=== PATIENT | male | born 1935 | race Caucasian/White ===

== ENCOUNTER → 2016-12-15 | Outpatient (CLI) | payer OTHER ==
[~2016-12-15] MED LIST: FERR324T15 PO; PRLSR20 PO
[2016-12-15 12:15] LABS: BASO % 0.7 %; BASO ABS # 0.04 K/uL (0-0.2); COMPLETE YES; EOS % 5.3 %; HEMATOCRIT 42.4 % (42-52); LYMPH % 30.2 %; LYMPH ABS # 1.83 K/uL (1.2-3.4); MEAN CELL VOLUME 87.8 fL (80-100); MEAN CORPUSCULAR HEMOGLOBIN 28.4 pg (25-34); MEAN CORPUSCULAR HGB CONC 32.3 g/dl (32-36); MONO % 7.1 %; NEUT % 56.7 %; PLATELET COUNT 196 K/uL (130-400); RED BLOOD COUNT 4.83 M/uL (4.7-6.1); WHITE BLOOD COUNT 6.05 K/uL (4.8-10.8)
== END | disposition home or self-care (01) ==
LOC: C.LAB1850 11:21
PROVIDERS: ATTEND Internal Medicine Cardiovascular Disease
DX: D62 Acute posthemorrhagic anemia (principal)

== ENCOUNTER → 2017-05-09 | Outpatient (CLI) | payer OTHER ==
[2017-05-09 12:39] LABS: BASO ABS # 0.06 K/uL (0-0.2); COMPLETE YES; EOS % 4.3 %; HEMATOCRIT 40.7 % (42-52); IG% 0.2 %; LYMPH % 30.9 %; LYMPH ABS # 1.78 K/uL (1.2-3.4); MEAN CELL VOLUME 87.9 fL (80-100); MEAN CORPUSCULAR HEMOGLOBIN 29.2 pg (25-34); MEAN CORPUSCULAR HGB CONC 33.2 g/dl (32-36); MEAN PLATELET VOLUME 9.9 fL (7.4-10.4); MONO % 7.1 %; NEUT % 56.5 %; PLATELET COUNT 219 K/uL (130-400); RED BLOOD COUNT 4.63 M/uL (4.7-6.1); WHITE BLOOD COUNT 5.76 K/uL (4.8-10.8)
[2017-05-09 13:11] LABS: ALT/SGPT 18 U/L (12-78); AST/SGOT 15 U/L (15-37); BLOOD UREA NITROGEN 23 mg/dl (7-18); BUN/CREATININE RATIO 18.9 (10-20); CALCIUM 9.3 mg/dl (8.5-10.1); CARBON DIOXIDE 26 mmol/L (21-32); CHLORIDE 107 mmol/L (98-107); GLUCOSE 94 mg/dl (70-99); POTASSIUM 4.1 mmol/L (3.5-5.1); SODIUM 140 mmol/L (136-145)
[2017-05-09 13:15] LABS: ALB/GLOB RATIO 0.9 (0.9-2); ALKALINE PHOSPHATASE 146 U/L (45-117); CHOLESTEROL 153 mg/dl (0-200); HDL CHOLESTEROL 51 mg/dl; LDL CHOLESTEROL CALCULATED 81 mg/dl; TRIGLYCERIDES 104 mg/dl (0-150); VERY LOW DENSITY LIPOPROT CALC 21 mg/dl
== END | disposition home or self-care (01) ==
LOC: C.LAB1850 10:55
PROVIDERS: ATTEND Internal Medicine Cardiovascular Disease
DX: I10 Essential (primary) hypertension (principal); E78.5 Hyperlipidemia, unspecified; Z87.19 Personal history of other diseases of the digestive system

== ENCOUNTER → 2017-10-29 | Outpatient (CLI) | payer OTHER ==
[2017-10-29 13:04] LABS: BASO % 0.5 %; BASO ABS # 0.03 K/uL (0-0.2); EOS % 2.8 %; EOS ABS # 0.18 K/uL (0-0.5); HEMATOCRIT 35.5 % (42-52); HEMOGLOBIN 11.1 g/dL (14.0-18.0); IG# 0.02 K/uL (0.00-0.02); LYMPH % 22.9 %; LYMPH ABS # 1.48 K/uL (1.2-3.4); MEAN CELL VOLUME 88.5 fL (80-100); MEAN CORPUSCULAR HEMOGLOBIN 27.7 pg (25-34); MEAN CORPUSCULAR HGB CONC 31.3 g/dl (32-36); MEAN PLATELET VOLUME 9.4 fL (7.4-10.4); MONO % 9.1 %; MONO ABS # 0.59 K/uL (0.11-0.59); NEUT % 64.4 %; NEUT ABS # 4.16 K/uL (1.4-6.5); PLATELET COUNT 322 K/uL (130-400); RED CELL DISTRIBUTION WIDTH CV 13.9 % (11.5-14.5); RED CELL DISTRIBUTION WIDTH SD 45.6 fL (36.4-46.3); WHITE BLOOD COUNT 6.46 K/uL (4.8-10.8)
[2017-10-29 14:52] LABS: ALBUMIN 2.9 gm/dl (3.4-5.0); ALT/SGPT 21 U/L (12-78); BLOOD UREA NITROGEN 24 mg/dl (7-18); CALCIUM 9.3 mg/dl (8.5-10.1); CARBON DIOXIDE 30 mmol/L (21-32); GLUCOSE 114 mg/dl (70-99); POTASSIUM 4.6 mmol/L (3.5-5.1); SODIUM 138 mmol/L (136-145)
[2017-10-29 15:09] LABS: ALKALINE PHOSPHATASE 300 U/L (45-117); AST/SGOT 52 U/L (15-37); TOTAL PROTEIN 7.8 gm/dl (6.4-8.2)
== END | disposition home or self-care (01) ==
LOC: C.LAB1850 11:33
PROVIDERS: ATTEND Internal Medicine Cardiovascular Disease
DX: N28.9 Disorder of kidney and ureter, unspecified (principal); R94.5 Abnormal results of liver function studies; R33.8 Other retention of urine; N13.30 Unspecified hydronephrosis

== ENCOUNTER → 2017-11-02 | Outpatient (CLI) | payer OTHER | END | disposition home or self-care (01) | LOC: C.PATHSPEC 14:51 | PROVIDERS: ATTEND Urology | DX: R97.20 Elevated prostate specific antigen [PSA] (principal); C61 Malignant neoplasm of prostate ==

== ENCOUNTER → 2017-11-14 | Outpatient (CLI) | payer OTHER ==
[~2017-11-14] MED LIST changes: +ASPI81TA28 PO; +BICA50TA2 PO; +CEFD300C2 PO; +HYDR25TA4 PO; +LISI10TA PO; +METO25TA3 PO
--- NOTE | 2017-11-14 10:22 | DIAGNOSTIC IMAGING REPORT ---
ABD/PELVIS NO IV OR ORAL CONT CLINICAL HISTORY: 82 years-old Male presenting with N19 Renal failure. TECHNIQUE: Multidetector CT of the abdomen and pelvis was performed without the use of intravenous contrast. IV contrast: None. A dose lowering technique was used consistent with the principles of ALARA (as low as reasonably achievable). COMPARISON: None. CT DOSE (mGy.cm): The estimated cumulative dose is 413.66 mGy.cm. FINDINGS: Kiss Mixer topogram: Unremarkable. Lung bases: Minimal basilar opacities, likely atelectasis. Ectasia of the ascending aorta, which measures 4.2 cm in diameter. Coronary artery calcification. Normal heart size. No pericardial or pleural effusion. Liver: Normal morphology. No liver lesion. Patent hepatic vasculature. Biliary: No intrahepatic or extrahepatic biliary ductal dilatation. Gallbladder contains gallstones. Pancreas: Normal noncontrast appearance. Spleen: Normal noncontrast appearance. Adrenal glands: Normal noncontrast appearance. Kidneys and ureters: Multiple hypodensities in both kidneys, the largest on the left measuring nearly 8 cm, indeterminate but likely simple cysts. Nonobstructing punctate calculus at the upper pole the right kidney. The left kidney also demonstrates moderate pelvocaliectasis with left hydroureter. The left ureter is dilated to the level of the iliac bifurcation, where it is poorly visualized. The distal left ureter is nondilated. Right renal collecting system is nondilated. The right ureter is also nondilated. Bladder: Circumferential bladder wall thickening allowing for decompression with a Hand catheter. Pelvic organs: Prostate enlargement likely secondary to benign prostatic hyperplasia. Bowel: Moderate stool burden throughout normal caliber colon feces noted in the distal small bowel likely indicating delayed transit. No bowel obstruction. Moderate to large hiatal hernia. Anterior displacement of the duodenum secondary to extensive retroperitoneal lymphadenopathy. Peritoneal cavity: No free fluid or intraperitoneal gas. Small amount of retroperitoneal fluid in the anterior para renal spaces extending into the extraperitoneal pelvis and presacral space. Lymph nodes: Pathologically enlarged lymph nodes in the abdomen and pelvis involving the celiac axis region, perez hepatis, portacaval, aortocaval, periaortic, bilateral common, internal, and external iliac, and bilateral inguinal regions. Vasculature: Atherosclerosis of the normal caliber abdominal aorta. Abdominal wall: Mild body wall edema. Small umbilical hernia noted. Musculoskeletal: Degenerative changes of the spine. Extensive sclerosis in the pelvis. This is not demonstrate cortical thickening or coarsened trabeculation. Abnormal sclerosis also noted at multiple vertebral body levels. IMPRESSION: 1. Extensive abdominopelvic lymphadenopathy extending into the bilateral inguinal regions. Inguinal lymphadenopathy would best served for percutaneous biopsy under ultrasound. This is primarily concerning for lymphoproliferative disease/lymphoma or prostate carcinoma. 2. Multifocal osseous sclerosis involving the pelvis and vertebral bodies highly concerning for osseous metastatic disease. 3. Left hydroureteronephrosis with suspected obstruction at the level of the left iliac bifurcation. There is no calculus in this region and evaluation for mass is limited in the absence of intravenous contrast. As this traverses a region of significant lymphadenopathy, this may be the cause of the obstruction due to external mass effect. 4. Prostatomegaly with chronic bladder obstruction. 5. Moderate stool burden suggest constipation. 6. Mild ectasia of the ascending aorta, which measures 4.2 cm in diameter. The report will be called/faxed according to standard departmental protocol. Electronically signed by: David Justin M.D. 11/14/2017 10:21 AM Dictated Date/Time: 11/14/2017 10:11 AM
--- NOTE | 2017-11-14 14:23 | DIAGNOSTIC IMAGING REPORT ---
BONE SCAN WHOLE BODY CLINICAL HISTORY: N19 Renal [id number] abnormal CT scan with multiple sclerotic skeletal lesions COMPARISON STUDY: CT scan dated 11/14/2017 FINDINGS: The patient was injected with 26.6 mCi of technetium 99m MDP. Three-hour delayed images were acquired. There are multiple foci of abnormal increased skeletal uptake. These include the intertrochanteric portions of both femurs, each symphysis pubis, the left ischio and inferior iliac bone, the sternum, the right seventh rib, multiple vertebra, as well as the skull base. Incidental note is made of an indwelling Hand catheter. IMPRESSION: Multiple foci of abnormal skeletal uptake viewed as highly suspicious for widespread skeletal metastasis Electronically signed by: Esau Murray M.D. 11/14/2017 2:21 PM Dictated Date/Time: 11/14/2017 2:18 PM
== END | disposition home or self-care (01) ==
LOC: C.CTS 09:45
PROVIDERS: ATTEND Urology
DX: N19 Unspecified kidney failure (principal); R59.1 Generalized enlarged lymph nodes; N13.30 Unspecified hydronephrosis; N40.0 Benign prostatic hyperplasia without lower urinary tract symptoms

== ENCOUNTER → 2017-11-19 | Outpatient (CLI) | payer OTHER ==
[~2017-11-19] MED LIST changes: -ASPI81TA28 PO; -BICA50TA2 PO; -CEFD300C2 PO; -HYDR25TA4 PO; -LISI10TA PO; -METO25TA3 PO
[2017-11-19 15:04] LABS: ALBUMIN 3.1 gm/dl (3.4-5.0); ALT/SGPT 24 U/L (12-78); AST/SGOT 17 U/L (15-37); BLOOD UREA NITROGEN 20 mg/dl (7-18); CALCIUM 9.2 mg/dl (8.5-10.1); CARBON DIOXIDE 27 mmol/L (21-32); CREATININE 1.61 mg/dl (0.60-1.40); GLUCOSE 101 mg/dl (70-99); POTASSIUM 4.2 mmol/L (3.5-5.1); SODIUM 137 mmol/L (136-145)
[2017-11-19 15:08] LABS: ALKALINE PHOSPHATASE 402 U/L (45-117); TOTAL PROTEIN 7.8 gm/dl (6.4-8.2)
== END | disposition home or self-care (01) ==
LOC: C.LAB1850 11:53
PROVIDERS: ATTEND Urology
DX: N28.9 Disorder of kidney and ureter, unspecified (principal)

== ENCOUNTER 2017-11-30 20:44 | Emergency (ER) | payer OTHER ==
[~2017-11-30] VITALS: Ht 170.2 cm; Wt 67.8 kg
[2017-11-30 20:54] VITALS: Ht 170.2 cm; Wt 67.8 kg
[2017-11-30] MEDS ORDERED: SODIUM CHLORIDE 0.9% 1000ML 1,000 ML IV STA (22:29)
[2017-11-30] MEDS ORDERED: ACETAMINOPHEN 500 MG TAB PO STA (22:29)
--- NOTE | 2017-11-30 22:38 | EMERGENCY ROOM VISIT NOTE ---
History Report prepared by Yaa: Cecilia Brown Under the Supervision of: Dr. Chris Arroyo M.D. First contact with patient: 22:26 Chief Complaint: REFERRED BY DOCTOR Stated Complaint: URINARY INFECTION History of Present Illness The patient is a 82 year old male who presents to the Emergency Room with complaints of a worsening urinary infection and was referred to the ED by Dr. Blount. He reports Dr. Blount referred him to the ED to ensure he did not have an infection as the patient had a fever of 100.4. The patient reports he has had chills, cloudy urine, and discomfort beginning at 1400 today. He notes he uses a catheter 4 times a day because his bladder is blocked. He denies having a cough. He reports he is currently being treated for prostate cancer. The patient states he does not want to stay here overnight for testing as he has a CAT scan scheduled for December 25, 2017. He states that he was supposed to come her to get oral antibiotics and then to go home. Source of History: patient Onset: 1400 today Position: other (global) Quality: other ("discomfort") Timing: worsening Associated Symptoms: + fevers (100.4), + chills, + urinary symptoms (cloudy urine), No cough Review of Systems See HPI for pertinent positives and negatives. A total of ten systems were reviewed and were otherwise negative. Past Medical & Surgical Medical Problems: (1) Dyspnea on exertion (2) Symptomatic anemia Family History Patient reports no known family medical history. Social History Smoking Status: Never Smoker Alcohol Use: none Drug Use: none Marital Status: Housing Status: lives with family Occupation Status: retired Current/Historical Medications Scheduled Bicalutamide (Casodex), 50 MG PO TID Cefdinir (Omnicef), 300 MG PO Q12H Hydrochlorothiazide (Hctz), 12.5 MG PO DAILY Lisinopril (Prinivil), 10 MG PO DAILY Metoprolol Succ (Toprol Xl) (Toprol-Xl), 25 MG PO DAILY Allergies Coded Allergies: Atropine (Verified Allergy, Unknown, UNKNOWN, 11/30/17) Levofloxacin (Verified Allergy, Unknown, filled up with fluid, 11/30/17) Physical Exam Vital Signs Date Time Temp Pulse Resp B/P (MAP) Pulse Ox O2 Delivery O2 Flow Rate FiO2 12/01/17 01:45 37.0 73 22 103/59 95 12/01/17 01:01 12/01/17 00:30 86 19 93 Room Air 12/01/17 00:05 37.4 91 21 106/61 94 Room Air 11/30/17 23:23 96 19 115/67 95 Room Air 11/30/17 23:06 100 11/30/17 20:54 38.0 96 18 138/78 96 Room Air Physical Exam GENERAL: Awake, alert, fatigued-appearing, in no distress HENT: Normocephalic, atraumatic. Dry mucus membranes. EYES: Normal conjunctiva. Sclera non-icteric. NECK: Supple. No nuchal rigidity. FROM. No JVD. RESPIRATORY: Clear to auscultation. CARDIAC: Regular rate, normal rhythm. Extremities warm and well perfused. Pulses equal. ABDOMEN: Soft, non-distended. No tenderness to palpation. No rebound or guarding. No masses. RECTAL: Deferred. MUSCULOSKELETAL: Chest examination reveals no tenderness. The back is symmetrical on inspection without obvious abnormality. There is no CVA tenderness to palpation. No joint edema. LOWER EXTREMITIES: Calves are equal size bilaterally and non-tender. No edema. No discoloration. NEURO: Normal sensorium. No sensory or motor deficits noted. SKIN: No rash or jaundice noted. Medical Decision & Procedures Laboratory Results 11/30/17 22:55 Red Blood Count 4.19, Mean Corpuscular Volume 87.1, Mean Corpuscular Hemoglobin 28.9, Mean Corpuscular Hemoglobin Concent 33.2, Mean Platelet Volume 9.6, Neutrophils (%) (Auto) 80.9, Lymphocytes (%) (Auto) 8.8, Monocytes (%) (Auto) 9.8, Eosinophils (%) (Auto) 0.1, Basophils (%) (Auto) 0.2, Neutrophils # (Auto) 8.74, Lymphocytes # (Auto) 0.95, Monocytes # (Auto) 1.06, Eosinophils # (Auto) 0.01, Basophils # (Auto) 0.02 11/30/17 22:55 Test 11/30/17 22:55 11/30/17 23:15 White Blood Count 10.80 K/uL (4.8-10.8) Red Blood Count 4.19 M/uL (4.7-6.1) Hemoglobin 12.1 g/dL (14.0-18.0) Hematocrit 36.5 % (42-52) Mean Corpuscular Volume 87.1 fL (80-100) Mean Corpuscular Hemoglobin 28.9 pg (25-34) Mean Corpuscular Hemoglobin Concent 33.2 g/dl (32-36) Platelet Count 201 K/uL (130-400) Mean Platelet Volume 9.6 fL (7.4-10.4) Neutrophils (%) (Auto) 80.9 % Lymphocytes (%) (Auto) 8.8 % Monocytes (%) (Auto) 9.8 % Eosinophils (%) (Auto) 0.1 % Basophils (%) (Auto) 0.2 % Neutrophils # (Auto) 8.74 K/uL (1.4-6.5) Lymphocytes # (Auto) 0.95 K/uL (1.2-3.4) Monocytes # (Auto) 1.06 K/uL (0.11-0.59) Eosinophils # (Auto) 0.01 K/uL (0-0.5) Basophils # (Auto) 0.02 K/uL (0-0.2) RDW Standard Deviation 49.8 fL (36.4-46.3) RDW Coefficient of Variation 15.5 % (11.5-14.5) Immature Granulocyte % (Auto) 0.2 % Immature Granulocyte # (Auto) 0.02 K/uL (0.00-0.02) Anion Gap 7.0 mmol/L (3-11) Est Creatinine Clear Calc Drug Dose 31.3 ml/min Estimated GFR () 42.0 Estimated GFR (Non- 36.2 BUN/Creatinine Ratio 17.3 (10-20) Lactic Acid Level 1.0 mmol/L (0.4-2.0) Calcium Level 9.4 mg/dl (8.5-10.1) Total Bilirubin 1.6 mg/dl (0.2-1) Direct Bilirubin 0.2 mg/dl (0-0.2) Aspartate Amino Transf (AST/SGOT) 12 U/L (15-37) Alanine Aminotransferase (ALT/SGPT) 16 U/L (12-78) Alkaline Phosphatase 425 U/L (45-117) Total Protein 8.1 gm/dl (6.4-8.2) Albumin 3.5 gm/dl (3.4-5.0) Lipase 315 U/L (73-393) Urine Color DK YELLOW Urine Appearance TURBID (CLEAR) Urine pH 5.5 (4.5-7.5) Urine Specific [place] 1.021 (1.000-1.030) Urine Protein 3+ (NEG) Urine Glucose (UA) NEG (NEG) Urine Ketones NEG (NEG) Urine Occult Blood 3+ (NEG) Urine Nitrite POS (NEG) Urine Bilirubin NEG (NEG) Urine Urobilinogen NEG (NEG) Urine Leukocyte Esterase LARGE (NEG) Urine WBC (Auto) >30 /hpf (0-5) Urine RBC (Auto) 10-30 /hpf (0-4) Urine Hyaline Casts (Auto) 1-5 /lpf (0-5) Urine Epithelial Cells (Auto) 0-5 /lpf (0-5) Urine Bacteria (Auto) 2+ (NEG) Urine Pathogenic Casts /lpf (0) Urine Yeast (Auto) BUD W/ HYPHAE (NONE PRSENT) Laboratory results reviewed by me Medications Administered Medications (Trade) Dose Ordered Sig/Jenny Route Start Time Stop Time Status Last Admin Dose Admin Sodium Chloride 1,000 ml @ 125 mls/hr Q8H STAT IV 11/30/17 22:29 12/01/17 02:53 DC 12/01/17 00:09 125 MLS/HR Acetaminophen (Tylenol Tab) 1,000 mg NOW STAT PO 11/30/17 22:29 11/30/17 22:39 DC 12/01/17 00:06 1,000 MG Ceftriaxone Sodium (Rocephin Inj) 1 gm NOW STAT IV 12/01/17 00:28 12/01/17 00:32 DC 12/01/17 00:38 1 GM Cefdinir (Omnicef Cap) 300 mg ONE STAT PO 12/01/17 01:04 12/01/17 01:06 DC 12/01/17 01:11 600 MG ED Course 2228: The patient was evaluated in room B8. A complete history and physical exam was performed. Medical Decision I reviewed the patient's past medical history, medications, and the nursing notes as described above. Differential diagnosis: Etiologies such as UTI, metabolic, electrolyte abnormalities, cardiac sources, intracerebral event, toxicologic, neurologic, as well as others were entertained. The patient is an 82-year-old gentleman with a past medical history of prostate cancer under treatment and known left ureteral obstruction hydronephrosis who presents to the emergency department with chills and concern for a UTI per hpi. Of note, On arrival the patient reports that he is here to "get oral antibiotics and then to go home" and is adamant that he will not be admitted. On arrival the patient is fatigued appearing but no acute distress febrile to 38.0, HR 90s, with vital signs otherwise stable. Patient appears clinically dry. Abdomen is nontender nondistended. WBC and lactate within normal limits. UA grossly positive for infection. CT scan demonstrates known ureteral obstruction with stable hydronephrosis however with comment of increased perinephric stranding that could be related to the patient's obstruction versus infection. While the patient did have a fever, his WBC and lactate were within normal limits and patient is without CVA tenderness. Thus, clinically, the patient's symptoms do not appear to be consistent with pyelonephritis. However given the patient's ureteral obstruction findings are concerning. I discussed these findings with the patient and recommended that he be admitted for IV antibiotics and possible surgical procedure should his condition become worse. However, he reiterated and was adamant that he would not be admitted under any circumstances. Patient reports he cannot tolerate fluoroquinolones. Thus we agreed that we would give him an IV dose of ceftriaxone here and discharge with oral antibiotics. HR improved to 80s and fever resolved after APAP adn IVF. I emphasized the importance of follow-up on Sunday with his urologist and primary care doctor. He was given strict return instructions. I explained to the patient the risks of leaving against medical advice for which he expressed understanding and confirmed that he would return if he became worse. Patient was d/c AMA per [facility]. Medication Reconcilliation Current Medication List: was personally reviewed by me Blood Pressure Screening Patient's blood pressure: Normal blood pressure Blood pressure disposition: Did not require urgent referral Impression Primary Impression: Urinary tract infection Additional Impression: Hydronephrosis of left kidney Scribe Attestation The scribe's documentation has been prepared under my direction and personally reviewed by me in its entirety. I confirm that the note above accurately reflects all work, treatment, procedures, and medical decision making performed by me. Departure Information Dispostion Against Medical Advice Prescriptions Cefdinir (OMNICEF) 300 Mg Cap 300 MG PO Q12H for 14 Days, #28 CAP Prov: Chris Arroyo M.D. 12/01/17 Referrals Deng Menezes M.D. (PCP) Roberto Lunsford MD, Urology Patient Instructions ED [place] Form- 1, ED UTI Cystitis Male, ED UTI Pyelonephritis Male, [facility] Additional Instructions Please follow up with your primary care physician and your urologist in the next 1-3 days for re-evaluation. You were found to have a urinary tract infection which may also involve your kidney. We recommended you stay for admission but your preferred to go home and follow up. You should make sure to return to the emergency department immediately for any continued/worsening symptoms. If worse you may require a surgical intervention. Please note, by leaving AGAINST MEDICAL ADVICE you risk a worse condition, disability, and . However, we're open 24 hours a day and 7 days a week if you were to change your mind or have any worsening symptoms and should not hesitate to return. Acetaminophen for pain and fevers as needed. Cefdinir as directed. Drink plenty of fluids to ensure hydration. Return to the emergency department for worsening symptoms as described in the accompanying instructions. Problem Qualifiers
[2017-11-30] MEDS ORDERED: HYDR25TA4 PO (22:41)
[2017-11-30] MEDS ORDERED: BICA50TA2 PO (22:41)
[2017-11-30] MEDS ORDERED: METO25TA3 PO (22:41)
[2017-11-30] MEDS ORDERED: LISI10TA PO (22:41)
[2017-11-30] MEDS ORDERED: ASPI81TA28 PO (22:41)
--- NOTE | 2017-11-30 22:51 | DIAGNOSTIC IMAGING REPORT ---
CHEST ONE VIEW PORTABLE CLINICAL HISTORY: fever dyspnea COMPARISON STUDY: None FINDINGS: Fixed hiatal hernia. Lungs are considered clear. Diaphragms are smooth. IMPRESSION: Fixed hiatal hernia. Lungs are clear. The above report was generated using voice recognition software. It may contain grammatical, syntax or spelling errors. Electronically signed by: Alton Underwood M.D. 11/30/2017 10:49 PM Dictated Date/Time: 11/30/2017 10:49 PM
[2017-11-30 23:14] LABS: BASO % 0.2 %; BASO ABS # 0.02 K/uL (0-0.2); EOS % 0.1 %; EOS ABS # 0.01 K/uL (0-0.5); HEMATOCRIT 36.5 % (42-52); HEMOGLOBIN 12.1 g/dL (14.0-18.0); IG# 0.02 K/uL (0.00-0.02); LYMPH % 8.8 %; LYMPH ABS # 0.95 K/uL (1.2-3.4); MEAN CELL VOLUME 87.1 fL (80-100); MEAN CORPUSCULAR HEMOGLOBIN 28.9 pg (25-34); MEAN CORPUSCULAR HGB CONC 33.2 g/dl (32-36); MEAN PLATELET VOLUME 9.6 fL (7.4-10.4); MONO % 9.8 %; MONO ABS # 1.06 K/uL (0.11-0.59); NEUT % 80.9 %; NEUT ABS # 8.74 K/uL (1.4-6.5); PLATELET COUNT 201 K/uL (130-400); RED CELL DISTRIBUTION WIDTH CV 15.5 % (11.5-14.5); RED CELL DISTRIBUTION WIDTH SD 49.8 fL (36.4-46.3)
[2017-11-30 23:42] LABS: ALBUMIN 3.5 gm/dl (3.4-5.0); CALCIUM 9.4 mg/dl (8.5-10.1); CREATININE 1.73 mg/dl (0.60-1.40); POTASSIUM 4.1 mmol/L (3.5-5.1)
[2017-11-30 23:45] LABS: TOTAL PROTEIN 8.1 gm/dl (6.4-8.2)
--- NOTE | 2017-11-30 23:59 | DIAGNOSTIC IMAGING REPORT ---
CT SCAN OF THE ABDOMEN AND PELVIS WITHOUT IV CONTRAST CLINICAL HISTORY: Lower abdominal pain. History of prostate cancer. COMPARISON STUDY: Abdominal CT dated 11/14/2017. TECHNIQUE: CT scan of the abdomen and pelvis is performed from the lung bases to the proximal femora. Images are reviewed in the axial, sagittal, and coronal planes. IV contrast was not administered for this examination as per the referring clinician. Note that the examination was performed in suboptimal fashion without oral and IV contrast. A dose lowering technique was utilized adhering to the principles of ALARA. CT DOSE: 277.80 mGy.cm FINDINGS: Lung bases: The heart is top normal in size and without pericardial effusion. The coronary arteries are calcified. There is a 4 mm right lower lobe pulmonary nodule seen on image #11. The lung bases are otherwise clear noting bibasilar scarring/atelectasis. Liver: The unenhanced liver is normal in size, contour, and attenuation. There is no intrahepatic biliary ductal dilatation. Gallbladder: There are numerous gallstones. There is no convincing CT evidence of acute cholecystitis. Spleen: Normal in size and attenuation. Pancreas: The unenhanced pancreas is mildly atrophic and grossly unremarkable. Adrenal glands: Unremarkable. Kidneys: The unenhanced kidneys are atrophic. There is moderate left hydroureteronephrosis. The left ureter is dilated to least the level of the pelvic inlet. This is similar to previous. There is associated left-sided perinephric and periureteric stranding as well as trace fluid. There is no right-sided hydronephrosis. A 4 mm nonobstructing calculus is seen in the right upper pole. No left renal calculi are Identified. There are large bilateral renal cysts. The largest is on the left and measures up to 9 cm. Abdominal vasculature: The abdominal aorta is normal in course and caliber noting moderate atherosclerotic calcification. Stomach and bowel: There is a large hiatal hernia, with the majority the stomach located in the thoracic cavity. The duodenum is normal in configuration. No bowel obstruction is seen. There is moderate colonic fecal retention. The appendix is not identified and reported surgically absent. Peritoneum: There is trace fluid in the paracolic gutters. No intraperitoneal free air is seen. There is a small fat-containing umbilical hernia. Lymphadenopathy: There is bulky confluence retroperitoneal and iliac chain lymphadenopathy. The largest retroperitoneal node is in the left periaortic region seen on image #158 and measures 4.4 x 2.9 cm. There is left inguinal adenopathy. The largest note is seen on image #399 and measures 2.1 x 1.6 cm. Pelvic viscera: The prostate gland is enlarged and heterogeneous, measuring 5 cm in transverse diameter. Although decompressed, the bladder wall is thickened and heterogeneous. There is pericystic inflammatory stranding. There are bilateral fat-containing inguinal hernias. The bowel loops contained within the right inguinal hernia. Skeletal structures: The skeletal structures are osteopenic. 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 Lesions are seen in the inferior sternum, throughout the lumbar spine, throughout the sacrum, as well as throughout the bony pelvis and proximal femora. Pathologic fracture is suggested in the sacrum. IMPRESSION: 1. Suboptimal examination without oral and IV contrast. 2. There is moderate left hydroureteronephrosis, similar in appearance to the 11/14/2017 examination. The left ureter is dilated to at least the level of the pelvic inlet. Perinephric stranding and fluid have increased from previous. This may be related to obstruction. Superimposed infection would be impossible to exclude. Correlation with clinical findings and urinalysis will be required. 3. The prostate gland is enlarged and heterogeneous. 4. The bladder wall is thickened and irregular, with pericystic inflammation identified. The appearance suggests cystitis, which could be on an infectious basis or treatment-related if there has been a history of pelvic radiation. Again, correlation with clinical findings and urinalysis will be required. 5. There is bulky retroperitoneal, iliac chain, and left inguinal lymphadenopathy. This has modestly decreased in size from 11/14/2017. 6. 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 Pathologic fracture of the sacrum is suspected. 7. A 4 mm right lower lobe pulmonary nodule is nonspecific. 8. Large hiatal hernia. 9. Cholelithiasis. 10. Moderate constipation. 11. A right inguinal hernia contains a nonobstructed segment of bowel. 12. Nonobstructing right renal calculus. 13. Additional findings as above. Electronically signed by: Bladimir Gamboa M.D. 11/30/2017 11:58 PM Dictated Date/Time: 11/30/2017 11:40 PM
[2017-12-01] MEDS ORDERED: CEFTRIAXONE SOD INJ 1 GM ADDVIAL IV STA (00:28)
[2017-12-01] MEDS ORDERED: CEFDINIR 300 MG CAP PO STA (01:04)
[2017-12-01] MEDS ORDERED: EMPTY 8 DRAM VIAL ONE (01:09)
[2017-12-01] MEDS ORDERED: CEFD300C2 PO (01:15)
[2017-12-01 01:45] VITALS: BP 103/59; PULSE 73; TEMP 37; O2SAT 95
--- NOTE | 2017-12-01 22:01 | EMERGENCY ROOM VISIT NOTE ---
ED Visit Note First contact with patient: 22:26 This note today (12/01/2017) is in reference to the patient's prior visit note from yesterday on 11/30/2017 after he was discharged AMA after being diagnosed with a urine infection in the setting of a known ureteral obstruction in the setting of his active prostate cancer. Patient was administer IV Ceftriaxone yesterday and currently on oral Cefdinir. The patient's blood culture from yesterday grew positive gram-negative bacilli with sensitivities pending. Given that this positive blood culture is within 24 hours there is concern that this is not a contaminate and a true bacteremia. I called the patient to inform him of the results and again encourage him and recommended that he should return to the emergency department for evaluation. In particular, I discussed with him the fact that he has a known ureter obstruction that puts him at risk for severe infection in the setting and it is the opinion of urology that he may need transfer to a tertiary care facility with capabilities for a percutaneous nephrostomy tube if stenting is not possible. The patient reports that he is feeling tired and has been sleeping a lot today but also went shopping with his during the day. He denies any recurrence of his fevers/chills that he had yesterday. The patient is appreciative of our concern but further states that he is unwilling to return to the hospital until he is able to speak with his main providers like Dr. Lunsford, urology or his house superintendent/PCP Dr. Menezes to get their opinion. The patient reports that he did understand the risks and confirmed he would return should he become worse. Case d/w Dr. Blount, urology on-call, who personally called the patient and again explained the concerns/risk regarding his infection and recommendation to be re-evaluated. Patient again expressed understanding of risks and prefers to follow with his providers outpatient given that he is feeling OK and again confirms he will go to the ED immediately should he become worse.
--- NOTE | 2017-12-03 13:28 | Pharmacy Progress Note ---
ED Pharmacist Culture FollowUp Date of Service: Dec 03, 2017. Patient's urine culture growing Serratia marcescens intermediate to tobramycin/ zosyn. Patient was discharged with Cefdinir 300 mg Q12H x 14 days. Patient left AMA and BC are positive 2/2 for maldonado-sensitive serratia. Patient was contacted on 12/01 to come back for evaluation and patient refused- said he would follow up with Dr. Lunsford on 12/03. Discussed case with Dr. Torres. Serratia does have ability for derepressed mutants that can be resistant to 3rd/4th generation cephalosporins resulting in treatment failure, generally cefdinir okay for UTI but if no improvement needs switched- sensitive to bactrim, also given bacteremia may consider change/patient need admission. Dr. Torres discussed with Kassie BRADLEY urology.
== END 2017-12-01 01:45 | disposition left against medical advice (07) ==
LOC: C.EDB 20:45
DX: N39.0 Urinary tract infection, site not specified (principal); N13.1 Hydronephrosis with ureteral stricture, not elsewhere classified; C61 Malignant neoplasm of prostate; Z88.1 Allergy status to other antibiotic agents; Z88.8 Allergy status to other drugs, medicaments and biological substances

== ENCOUNTER 2017-12-03 16:14 | Inpatient (IN) | payer OTHER ==
[~2017-12-03] VITALS: Ht 180.3 cm; Wt 64.9 kg
[~2017-12-03 16:14] MED LIST changes: +BICA50TA2 PO; +CEFD300C2 PO; -FERR324T15 PO; +HYDR25TA4 PO; +LISI10TA PO; +METO25TA3 PO; -PRLSR20 PO
[2017-12-03] MEDS ORDERED: CEFTRIAXONE SOD INJ 1 GM ADDVIAL IV STA (16:38)
[2017-12-03 17:28] LABS: BASO % 0.5 %; BASO ABS # 0.03 K/uL (0-0.2); EOS % 2.3 %; EOS ABS # 0.13 K/uL (0-0.5); IG# 0.01 K/uL (0.00-0.02); LYMPH % 23.8 %; LYMPH ABS # 1.36 K/uL (1.2-3.4); MEAN CELL VOLUME 88.1 fL (80-100); MEAN CORPUSCULAR HEMOGLOBIN 28.5 pg (25-34); MEAN CORPUSCULAR HGB CONC 32.4 g/dl (32-36); MEAN PLATELET VOLUME 9.7 fL (7.4-10.4); MONO % 11.6 %; MONO ABS # 0.66 K/uL (0.11-0.59); NEUT % 61.6 %; NEUT ABS # 3.52 K/uL (1.4-6.5); PLATELET COUNT 175 K/uL (130-400); RED CELL DISTRIBUTION WIDTH CV 15.6 % (11.5-14.5); RED CELL DISTRIBUTION WIDTH SD 50.5 fL (36.4-46.3); WHITE BLOOD COUNT 5.71 K/uL (4.8-10.8)
[2017-12-03 17:48] LABS: ALBUMIN 3.4 gm/dl (3.4-5.0); CALCIUM 9.2 mg/dl (8.5-10.1); CREATININE 1.81 mg/dl (0.60-1.40); POTASSIUM 3.8 mmol/L (3.5-5.1)
[2017-12-03 17:51] LABS: TOTAL PROTEIN 8.3 gm/dl (6.4-8.2)
--- NOTE | 2017-12-03 18:39 | EMERGENCY ROOM VISIT NOTE ---
History Report prepared by Yaa: Jeannette Galeas Under the Supervision of: Dr. Joaquim Bradford M.D. First contact with patient: 16:21 Chief Complaint: INFECTION Stated Complaint: SEPSIS- SENT BY DR GOSS History of Present Illness The patient is a 82 year old male who presents to the Emergency Room with complaints of an infection of his blood and urine beginning last week. The patient states that he was referred to the Emergency Department by his urologist Dr. Goss. The patient states that his family doctor is Dr. Menezes. The patient was seen here on November [address] Arroyo and was given Rocephin and Omnicef by prescription. The patient's cultures came back positive and Dr. Aroryo called him the next day, but the patient did not want to come into the Emergency Department. The patient states that he catheterizes himself and that he does it every six hours. He denies any recent problems with catheterizing himself. The patient states that he takes medication for his heart and prostate cancer. The patient reports that he was having swelling when he was in [place] but that he took Levaquin. The patient reports a history of an appendectomy. Pt denies LOC, headache, fevers, chills, diaphoresis, visual changes, neck pain, chest pain, breathing difficulties, nausea, vomiting, abdominal pain, back pain , melena, hematochezia, urinary symptoms, numbness, weakness, rash, or other complaints. Source of History: patient Onset: last week Position: other (blood and urine ) Quality: other (infection ) Timing: constant Associated Symptoms: No fevers Note: additional symptom: swelling Review of Systems See HPI for pertinent positives and negatives. A total of ten systems were reviewed and were otherwise negative. Past Medical & Surgical Medical Problems: (1) Dyspnea on exertion (2) Prostate cancer (3) Symptomatic anemia Surgical Problems: (1) S/P appendectomy Family History Patient reports no known family medical history. Social History Smoking Status: Never Smoker Alcohol Use: none Drug Use: none Marital Status: Housing Status: lives with family Occupation Status: retired Current/Historical Medications Scheduled Bicalutamide (Casodex), 50 MG PO TID Cefdinir (Omnicef), 300 MG PO Q12H Hydrochlorothiazide (Hctz), 12.5 MG PO DIRECTED Lisinopril (Prinivil), 10 MG PO DAILY Metoprolol Succ (Toprol Xl) (Toprol-Xl), 25 MG PO DAILY Allergies Coded Allergies: Atropine (Verified Allergy, Unknown, UNKNOWN, 11/30/17) Levofloxacin (Verified Allergy, Unknown, filled up with fluid, 11/30/17) Physical Exam Vital Signs Date Time Temp Pulse Resp B/P (MAP) Pulse Ox O2 Delivery O2 Flow Rate FiO2 12/03/17 18:17 60 18 140/79 98 Room Air 12/03/17 17:09 62 12/03/17 16:18 36.8 70 20 146/80 98 Room Air Physical Exam GENERAL: Awake, alert, well-appearing, in no distress HENT: Normocephalic, atraumatic. Oropharynx unremarkable. EYES: Normal conjunctiva. Sclera non-icteric. NECK: Supple. No nuchal rigidity. FROM. No masses. RESPIRATORY: Clear to auscultation. No wheezes. No rales. Normal respiratory effort. CARDIAC: Normal rate. Normal rhythm. No murmurs. No rubs. Extremities warm and well perfused. Pulses equal. No JVD. GI: Soft, non-distended. No tenderness to palpation. No rebound or guarding. No masses. RECTAL: Deferred. MUSCULOSKELETAL: Atraumatic. Chest examination reveals no tenderness. The back is symmetrical on inspection without obvious abnormality. There is no CVA tenderness to palpation. No joint edema. LOWER EXTREMITIES: Calves are equal size bilaterally and non-tender. No edema. No discoloration. NEURO: Normal sensorium. No sensory or motor deficits noted. SKIN: No rash or jaundice noted. Medical Decision & Procedures Laboratory Results 12/03/17 17:00 Red Blood Count 3.86, Mean Corpuscular Volume 88.1, Mean Corpuscular Hemoglobin 28.5, Mean Corpuscular Hemoglobin Concent 32.4, Mean Platelet Volume 9.7, Neutrophils (%) (Auto) 61.6, Lymphocytes (%) (Auto) 23.8, Monocytes (%) (Auto) 11.6, Eosinophils (%) (Auto) 2.3, Basophils (%) (Auto) 0.5, Neutrophils # (Auto ) 3.52, Lymphocytes # (Auto) 1.36, Monocytes # (Auto) 0.66, Eosinophils # (Auto ) 0.13, Basophils # (Auto) 0.03 12/03/17 17:00 Test 12/03/17 17:00 12/03/17 17:20 White Blood Count 5.71 K/uL (4.8-10.8) Red Blood Count 3.86 M/uL (4.7-6.1) Hemoglobin 11.0 g/dL (14.0-18.0) Hematocrit 34.0 % (42-52) Mean Corpuscular Volume 88.1 fL (80-100) Mean Corpuscular Hemoglobin 28.5 pg (25-34) Mean Corpuscular Hemoglobin Concent 32.4 g/dl (32-36) Platelet Count 175 K/uL (130-400) Mean Platelet Volume 9.7 fL (7.4-10.4) Neutrophils (%) (Auto) 61.6 % Lymphocytes (%) (Auto) 23.8 % Monocytes (%) (Auto) 11.6 % Eosinophils (%) (Auto) 2.3 % Basophils (%) (Auto) 0.5 % Neutrophils # (Auto) 3.52 K/uL (1.4-6.5) Lymphocytes # (Auto) 1.36 K/uL (1.2-3.4) Monocytes # (Auto) 0.66 K/uL (0.11-0.59) Eosinophils # (Auto) 0.13 K/uL (0-0.5) Basophils # (Auto) 0.03 K/uL (0-0.2) RDW Standard Deviation 50.5 fL (36.4-46.3) RDW Coefficient of Variation 15.6 % (11.5-14.5) Immature Granulocyte % (Auto) 0.2 % Immature Granulocyte # (Auto) 0.01 K/uL (0.00-0.02) Anion Gap 5.0 mmol/L (3-11) Est Creatinine Clear Calc Drug Dose 29.4 ml/min Estimated GFR () 39.7 Estimated GFR (Non- 34.3 BUN/Creatinine Ratio 15.8 (10-20) Calcium Level 9.2 mg/dl (8.5-10.1) Total Bilirubin 0.8 mg/dl (0.2-1) Direct Bilirubin 0.2 mg/dl (0-0.2) Aspartate Amino Transf (AST/SGOT) 12 U/L (15-37) Alanine Aminotransferase (ALT/SGPT) 16 U/L (12-78) Alkaline Phosphatase 331 U/L (45-117) Total Protein 8.3 gm/dl (6.4-8.2) Albumin 3.4 gm/dl (3.4-5.0) Lipase 460 U/L (73-393) Urine Color YELLOW Urine Appearance CLOUDY (CLEAR) Urine pH 5.5 (4.5-7.5) Urine Specific [place] 1.014 (1.000-1.030) Urine Protein TRACE (NEG) Urine Glucose (UA) NEG (NEG) Urine Ketones NEG (NEG) Urine Occult Blood 2+ (NEG) Urine Nitrite NEG (NEG) Urine Bilirubin NEG (NEG) Urine Urobilinogen NEG (NEG) Urine Leukocyte Esterase LARGE (NEG) Urine WBC (Auto) >30 /hpf (0-5) Urine RBC (Auto) 0-4 /hpf (0-4) Urine Hyaline Casts (Auto) 0 /lpf (0-5) Urine Epithelial Cells (Auto) 0-5 /lpf (0-5) Urine Bacteria (Auto) NEG (NEG) Laboratory results reviewed by me Medications Administered Medications (Trade) Dose Ordered Sig/Jenny Route Start Time Stop Time Status Last Admin Dose Admin Ceftriaxone Sodium (Rocephin Inj) 1 gm NOW STAT IV 12/03/17 16:38 12/03/17 16:39 DC 12/03/17 17:01 1 GM ED Course 1626: The patient was evaluated in room C12B. A complete history and physical exam was performed. 1638: Ordered Rocephin Inj 1 gm IV. 1806: Discussed the patient's case with Dr. Alexandra-Infectious Disease who recommended admission for the patient. The patient will be evaluated for further treatment and disposition. 181: Upon reexamination, the patient was resting. I discussed the test results and treatment plan with him. [facility] The patient will be evaluated for further management. Medical Decision Patient presents to the emergency department because of abnormal labs. The has a Serratia UTI and bacteremia. Prior records were reviewed. The patient has been on Omnicef. He received IV Rocephin. Differential diagnosis includes bacteremia, UTI, sepsis, pyelonephritis, as well as others. Clinically he is doing well. Blood work is obtained. He was given additional dose of IV Rocephin. His CBC and chemistries were unremarkable. Urinalysis is still concerning for infection. I did consult with Dr. Alexandra of infectious disease and he strongly recommended inpatient treatment. I did discuss case with hospitalist service. The patient and his were informed. He agreed to stay in the hospital overnight. Medication Reconcilliation Current Medication List: was personally reviewed by me Blood Pressure Screening Patient's blood pressure: Elevated blood pressure will be monitored by hospitalist Consults Time Called: 1804 Consulting Physician: Dr. Alexandra- Infectious Disease Returned Call: 1805 Discussed the patient's case with Dr. Alexandra-Infectious Disease who recommended admission for the patient. The patient will be evaluated for further treatment and disposition. Additional Consults: Time Called: 1812 Consulted Physician: Dr. Bustamante- [facility] Hospitalist Returned Call: 1812 Additional Comments: Discussed the patient's case. The patient will be evaluated for further treatment and disposition. Impression Primary Impression: Bacterial infection due to Serratia Additional Impressions: UTI (urinary tract infection) Bacteremia Scribe Attestation The scribe's documentation has been prepared under my direction and personally reviewed by me in its entirety. I confirm that the note above accurately reflects all work, treatment, procedures, and medical decision making performed by me. Departure Information Dispostion Being Evaluated By Hospitalist Referrals Deng Menezes M.D. (PCP) Patient Instructions My [facility] Problem Qualifiers
--- NOTE | 2017-12-03 18:49 | History and Physical ---
History & Physical Date & Time of Service: Dec 03, 2017 at 18:39 Chief Complaint: Sepsis- Sent By Dr Lunsford Primary Care Physician: Deng Menezes M.D. 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 Lunsford at the beginning of this month. Patient was recently in the ER 3 days ago and found to have a UTI where blood cultures were drawn. At that point in time he refused to be admitted, and was started on Omnicef and discharged from the ER. Blood cultures have returned positive 2/2 with Serratia marcescens growing, therefore he was called and told to report back to the ER. The patient initially refused, however was seen by his PCP today who encouraged him to come to the ER. Repeat blood cultures and urine cultures have been drawn in the ER. Patient has been started on ceftriaxone IV as sensitivities for initial cultures have returned. We will consult infectious disease, Dr. Alexandra to determine length of antibiotic treatment course. The patient reports feeling well, no fever, chills or sweats. He typically straight caths QID for urinary retention secondary to enlarge prostate. 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 After listening to him and his discuss their previous experiences, he seems much more happy to talk with me at bedside. Of note, he was recently placed on levaquin for a previous UTI and reports his fluid status was severely affected therefore has been on HCTZ 12.5 qam on ODD days. Past Medical/Surgical History Medical Problems: (1) Dyspnea on exertion (2) Hydronephrosis of left kidney (3) Prostate cancer (4) Symptomatic anemia (5) Urinary tract infection HTN Hx of myocardial infarction x 2 Surgical Problems: (1) S/P appendectomy Family History Patient reports no known family medical history. Social History Smoking Status: Former Smoker (quit 30 years ago, smoked pipe occasionally) Alcohol Use: occasionally (1 glass of Radha occasionally) Drug Use: none Marital Status: Housing status: lives with family Occupational Status: retired Allergies Coded Allergies: Atropine (Verified Allergy, Unknown, UNKNOWN, 11/30/17) Levofloxacin (Verified Allergy, Unknown, filled up with fluid, 11/30/17) Home Medications Scheduled Bicalutamide (Casodex), 50 MG PO TID Cefdinir (Omnicef), 300 MG PO Q12H Hydrochlorothiazide (Hctz), 12.5 MG PO DIRECTED Lisinopril (Prinivil), 10 MG PO DAILY Metoprolol Succ (Toprol Xl) (Toprol-Xl), 25 MG PO DAILY Review of Systems Constitutional: No fever, No chills, No sweats, No weight loss, No fatigue Eyes: No redness, No discharge ENT: No sore throat, No trouble swallowing Respiratory: No cough, No shortness of breath, No dyspnea on exertion Cardiovascular: No chest pain, No edema Abdomen: No pain, No nausea, No vomiting, No diarrhea, No constipation Musculoskeletal: No joint pain, No swelling Genitourinary - Male: + problem reported (see HPI) Neurologic: No weakness, No numbness/tingling Psychiatric: No depression symptoms, No anxiety Endocrine: No fatigue Integumentary: No rash, No itch Physical Exam Vital Signs Date Time Temp Pulse Resp B/P (MAP) Pulse Ox O2 Delivery O2 Flow Rate FiO2 12/03/17 18:17 60 18 140/79 98 Room Air 12/03/17 17:09 62 12/03/17 16:18 36.8 70 20 146/80 98 Room Air General Appearance: WD/WN, no apparent distress Head: normocephalic, atraumatic Eyes: PERRL, EOMI ENT: hearing grossly normal, pharynx normal Neck: supple, thyroid normal Respiratory/Chest: lungs clear, normal breath sounds, no respiratory distress, no accessory muscle use Cardiovascular: regular rate, rhythm, no JVD, + systolic murmur Abdomen/GI: normal bowel sounds, non tender, soft, + pertinent finding (+ tympany with percussion) Back: normal inspection Extremities/Musculoskelatal: no calf tenderness, no pedal edema Neurologic/Psych: alert, normal mood/affect, oriented x 3 Skin: normal color, warm/dry Diagnostics Laboratory Results Results Past 24 Hours Test 12/03/17 17:00 12/03/17 17:20 Range/Units White Blood Count 5.71 4.8-10.8 K/uL Red Blood Count 3.86 4.7-6.1 M/uL Hemoglobin 11.0 14.0-18.0 g/dL Hematocrit 34.0 42-52 % Mean Corpuscular Volume 88.1 80-100 fL Mean Corpuscular Hemoglobin 28.5 25-34 pg Mean Corpuscular Hemoglobin Concent 32.4 32-36 g/dl Platelet Count 175 130-400 K/uL Mean Platelet Volume 9.7 7.4-10.4 fL Neutrophils (%) (Auto) 61.6 % Lymphocytes (%) (Auto) 23.8 % Monocytes (%) (Auto) 11.6 % Eosinophils (%) (Auto) 2.3 % Basophils (%) (Auto) 0.5 % Neutrophils # (Auto) 3.52 1.4-6.5 K/uL Lymphocytes # (Auto) 1.36 1.2-3.4 K/uL Monocytes # (Auto) 0.66 0.11-0.59 K/uL Eosinophils # (Auto) 0.13 0-0.5 K/uL Basophils # (Auto) 0.03 0-0.2 K/uL RDW Standard Deviation 50.5 36.4-46.3 fL RDW Coefficient of Variation 15.6 11.5-14.5 % Immature Granulocyte % (Auto) 0.2 % Immature Granulocyte # (Auto) 0.01 0.00-0.02 K/uL Sodium Level 137 136-145 mmol/L Potassium Level 3.8 3.5-5.1 mmol/L Chloride Level 105 98-107 mmol/L Carbon Dioxide Level 27 21-32 mmol/L Anion Gap 5.0 3-11 mmol/L Blood Urea Nitrogen 29 7-18 mg/dl Creatinine 1.81 0.60-1.40 mg/dl Est Creatinine Clear Calc Drug Dose 29.4 ml/min Estimated GFR () 39.7 Estimated GFR (Non- 34.3 BUN/Creatinine Ratio 15.8 10-20 Random Glucose 95 70-99 mg/dl Calcium Level 9.2 8.5-10.1 mg/dl Total Bilirubin 0.8 0.2-1 mg/dl Direct Bilirubin 0.2 0-0.2 mg/dl Aspartate Amino Transf (AST/SGOT) 12 15-37 U/L Alanine Aminotransferase (ALT/SGPT) 16 12-78 U/L Alkaline Phosphatase 331 45-117 U/L Total Protein 8.3 6.4-8.2 gm/dl Albumin 3.4 3.4-5.0 gm/dl Lipase 460 73-393 U/L Urine Color YELLOW Urine Appearance CLOUDY CLEAR Urine pH 5.5 4.5-7.5 Urine Specific [place] 1.014 1.000-1.030 Urine Protein TRACE NEG Urine Glucose (UA) NEG NEG Urine Ketones NEG NEG Urine Occult Blood 2+ NEG Urine Nitrite NEG NEG Urine Bilirubin NEG NEG Urine Urobilinogen NEG NEG Urine Leukocyte Esterase LARGE NEG Urine WBC (Auto) >30 0-5 /hpf Urine RBC (Auto) 0-4 0-4 /hpf Urine Hyaline Casts (Auto) 0 0-5 /lpf Urine Epithelial Cells (Auto) 0-5 0-5 /lpf Urine Bacteria (Auto) NEG NEG Microbiology Results 12/03/17 Blood Culture, Ordered Pending 12/03/17 Blood Culture, Ordered Pending 12/03/17 Urine Culture, Received Pending Impression Assessment and Plan 82 y M with PMHx of HTN, 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 Lunsford at the beginning of this month. Patient was recently in the ER 3 days ago and found to have a UTI where blood cultures were drawn. At that point in time he refused to be admitted, and was started on Omnicef and discharged from the ER. Blood cultures have returned positive 2/2 with Serratia marcescens. Pt admitted and placed on IV ceftriaxone. UTI Positive blood cultures with Serratia marcescens History of prostate cancer on Casodex therapy -Admit to [facility] -Repeat CBC X blood cultures 2 obtained, follow -UA and urine culture obtained, follow -No leukocytosis, afebrile, patient feels -start lactobacillus while on IV abx HTN -Continue home medications -Follows with Dr. Lunsford with urology as an outpatient - Insert lanier cath as pt typically needs straight cath QID as outpatient while here, strict I/Os, void trial prior to dc CKD stage III -Creatinine elevated at 1.8, up from 3 days ago where it was 1.7, Unknown baseline but was at 1.4 last fall -Hold fluids at this time and watch with hx of LE edema. HCTZ dosed as per home regimen on ODD days, last dose taken this morning, continue next dose on 4/25. HTN Hx MD x 2 -Continue home medications of metprolol, lisinopril and HCTZ as above. DVT prophylaxis: Ambulatory CODE STATUS: Full code Disposition: Patient from home, Likely to return within 1-2 days I personally interviewed and examined the patient. I agree with history of present illness and physical exam mentioned above, I also performed my own history taking and examination. Past medical history and review of system has been obtained by myself I reviewed all pertinent labs and studies Reviewed current medications I discussed and formulated of the assessment and plan mentioned above. Please refer to the Summary mentioned below. 82 years old man with history of prostate cancer, currently doing self- catheterization, hypertension, coronary artery disease and chronic kidney disease stage III. Patient presented to the hospital 3 days ago with UTI symptoms, blood and urine cultures came back negative for Serratia. Patient was called to come back to the hospital, initially refused because he is feeling better on oral antibiotics that he was given. But his urologist encouraged him to come to the hospital. New blood cultures were sent, patient was started on ceftriaxone, will increase the dose to [address] Alexandra from infectious disease services will be consulted on the case He was giving lactobacillus to prevent C. difficile Ultrasound renal was ordered to rule out any perirenal abscess or unilateral hydronephrosis, pyelonephritis, 1 blood cultures clear consider PICC line and home antibiotic therapy General Appearance: not in acute distress Eyes: normal Sclerae, extraocular muscle intact ENT: hearing grossly normal Neck: supple Respiratory/Chest: normal air entry bilateral ,no respiratory distress, no accessory muscle use Cardiovascular: regular rate, rhythm, no murmur Abdomen: non tender, soft, no masses Extremities: no edema musculoskeletal: no significant swelling or inflammation in any joint Neurologic/Psychiatric: Awake alert oriented times place and person moves all extremities sensation intact cranial nerves II-12 appear to be intact Skin: normal color, warm/dry, no rash Erickson Amos MD, [facility] hospitalist group Resuscitation Status VTE Prophylaxis Will order VTE Prophylaxis: No Reason for no VTE drug order: Treatment not indicated Reason no Mechanical VTE Order: Treatment not indicated
[2017-12-03 20:50] VITALS: O2SAT 96; Ht 180.3 cm; Wt 64.9 kg
[2017-12-03] MEDS: BICALUTAMIDE 50 MG TAB PO SCH (21:53)
--- NOTE | 2017-12-03 23:10 | DIAGNOSTIC IMAGING REPORT ---
RENAL ULTRASOUND HISTORY: UTI with bacteremia , R/O sole renal abscess or obstruction COMPARISON: Abdomen and pelvis CT 11/30/2017. FINDINGS: Right kidney: 11.4 cm. No hydronephrosis. Multiple cysts the largest in the lower pole measuring 5.3 cm. This demonstrates a few septations. This also demonstrates a few internal echoes. The cortex is slightly echogenic. Left kidney: 12.5 cm. Moderate hydronephrosis, unchanged. Multiple cysts with the largest in the upper pole measuring 8 cm. The cortex is echogenic and demonstrates mild to moderate thinning. The Bladder: Decompressed by Hand catheter and not well visualized. Bladder wall thickening is noted. IMPRESSION: 1. No change in the moderate left hydronephrosis. 2. Bilateral renal cysts. The 5.3 cm lower pole cyst within the right kidney appears to be complex. 3. Bladder wall thickening. This may be due to the decompression by the Hand catheter. 4. Echogenic kidneys suggestive of medical renal disease. Electronically signed by: Abdi De Anda M.D. 12/03/2017 11:09 PM Dictated Date/Time: 12/03/2017 11:06 PM
[2017-12-04] VITALS (8 sets, daily range): BP systolic 112–160; BP diastolic 58–77; PULSE 58–69; TEMP 36.5–37; O2SAT 92–97
[2017-12-04 05:57] LABS: BASO % 0.6 %; BASO ABS # 0.03 K/uL (0-0.2); EOS % 3.3 %; EOS ABS # 0.18 K/uL (0-0.5); HEMATOCRIT 30.5 % (42-52); IG# 0.02 K/uL (0.00-0.02); LYMPH % 23.8 %; LYMPH ABS # 1.28 K/uL (1.2-3.4); MEAN CELL VOLUME 87.6 fL (80-100); MEAN CORPUSCULAR HEMOGLOBIN 28.7 pg (25-34); MEAN CORPUSCULAR HGB CONC 32.8 g/dl (32-36); MEAN PLATELET VOLUME 9.8 fL (7.4-10.4); MONO % 13.4 %; MONO ABS # 0.72 K/uL (0.11-0.59); NEUT % 58.5 %; NEUT ABS # 3.15 K/uL (1.4-6.5); PLATELET COUNT 167 K/uL (130-400); RED CELL DISTRIBUTION WIDTH CV 15.3 % (11.5-14.5); RED CELL DISTRIBUTION WIDTH SD 49.5 fL (36.4-46.3); WHITE BLOOD COUNT 5.38 K/uL (4.8-10.8)
[2017-12-04 06:25] LABS: ALBUMIN 2.6 gm/dl (3.4-5.0); CALCIUM 8.8 mg/dl (8.5-10.1); CREATININE 1.79 mg/dl (0.60-1.40); POTASSIUM 3.9 mmol/L (3.5-5.1)
[2017-12-04 06:28] LABS: TOTAL PROTEIN 6.9 gm/dl (6.4-8.2)
[2017-12-04] MEDS ORDERED: CEFTRIAXONE SOD INJ 500 MG in DEXTROSE 5% 50ML 50 ML IV SCH (08:00)
[2017-12-04] MEDS: METOPROLOL SUCC 25MG EXT REL TAB PO SCH (08:13)
[2017-12-04] MEDS: LISINOPRIL 10 MG TAB PO SCH (08:13)
[2017-12-04] MEDS: LACTOBACILLUS ACIDOPHILUS (FLORANEX) TAB PO SCH ×3 (08:13→17:48)
[2017-12-04] MEDS: BICALUTAMIDE 50 MG TAB PO SCH ×3 (08:15→20:51)
--- NOTE | 2017-12-04 10:35 | Clinical Documentation Query ---
NIRANJAN Martin : CLINICAL DOCUMENTATION QUERY Patient is an 82 year old male admitted for treatment of UTI. H&P notes "he typically straight caths QID for urinary retention secondary to enlarge prostate". 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 Thank you. In your clinical opinion is this patient being managed for: ( x ) UTI due to intermittent self urethral catheterization ( ) Not Agree ( ) Other explanation of clinical findings (Please Explain) ( ) Unable to determine (Please Define) ( ) Need to Discuss The medical record reflects the following clinical findings, treatment, and risk factors. Clinical Indicators: As above Treatment: Cultures, UA, urine culture, IV antibiotics, Hand Risk Factors: Self catheterization QID Please clarify and document your clinical opinion in the progress notes and discharge summary. Terms such as "probable", "suspected", "likely", "questionable", "possible", or "still to be ruled out" are acceptable. IF IN AGREEMENT, YOU MUST DOCUMENT ABOVE DIAGNOSTIC STATEMENT IN DAILY PROGRESS NOTES AND DISCHARGE SUMMARY. This document is not part of the patient's record. Thank You, Albino Olmos, RN [phone]
--- NOTE | 2017-12-04 10:40 | Medical Consult ---
Consultation Date of Consultation: Dec 04, 2017. Attending Physician: Rosalino Mane MD, PhD Reason for Consultation: Bacteremia History of Present Illness 82-year-old male with history of prostate cancer and BPH, was found to have evidence of urinary tract infection earlier this year while residing in [place] , and was told by his urologist there that he had BPH and was given levofloxacin. He developed severe side effects from medication which was discontinued but had improvement in his symptoms. He re-presented to the emergency room November 30 with recurrent urinary symptoms along with chills, was discharged home on Omnicef, but now blood and urine cultures have returned positive for a sensitive Serratia marcescens. Patient was called back in admitted to the hospital and started on ceftriaxone 1 gram daily. He states that he is feeling much better, denies any current significant symptoms. He has had urinary retention on off, and has had Hand catheter and intermittent self catheterization recently. He had CT scan done November 30 which showed evidence of possible pyelonephritis and cystitis. Follow-up blood cultures are pending. Past Medical/Surgical History Medical Problems: (1) Bacteremia Status: Acute (2) Bacterial infection due to Serratia Status: Acute (3) Hydronephrosis of left kidney Status: Acute (4) Urinary tract infection Status: Acute (5) UTI (urinary tract infection) Status: Acute Medical Problems: (1) Dyspnea on exertion (2) Prostate cancer (3) Serratia marcescens infection (4) Symptomatic anemia Surgical Problems: (1) S/P appendectomy Family History Patient reports no known family medical history. Social History Smoking Status: Former Smoker Alcohol Use: occasionally (1 glass of Radha occasionally) Drug Use: none Marital Status: Housing Status: lives with family Occupation Status: retired Allergies Coded Allergies: Atropine (Verified Allergy, Unknown, UNKNOWN, 11/30/17) Levofloxacin (Verified Allergy, Unknown, filled up with fluid, 11/30/17) Current Inpatient Medications Current Inpatient Medications Medications (Trade) Dose Ordered Sig/Jenny Route Start Time Stop Time Status Last Admin Dose Admin Bicalutamide (Casodex Tab) 50 mg TID PO 12/03/17 20:10 01/02/18 20:59 12/04/17 08:15 50 MG Lisinopril (Zestril Tab) 10 mg DAILY PO 12/04/17 08:00 01/03/18 08:59 12/04/17 08:13 10 MG Metoprolol Succinate (Toprol Xl Tab) 25 mg DAILY PO 12/04/17 08:00 01/03/18 08:59 12/04/17 08:13 25 MG Lactobacillus Acidophilus (Floranex Tab) 4 tab TIDM PO 12/04/17 08:00 01/03/18 07:59 12/04/17 08:13 4 TAB Hydrochlorothiazide (Hydrochlorothiazide Tab) 12.5 mg Q2D@0900 PO 12/05/17 08:00 01/04/18 07:59 Sodium Chloride 1,000 ml @ 80 mls/hr [id number] IV 12/04/17 10:20 01/03/18 10:19 UNV Ceftriaxone Sodium 2000 mg/ Dextrose 70 ml @ 100 mls/hr Q24H IV 12/04/17 10:30 12/14/17 10:29 UNV Miscellaneous Information (Nursing Verbal Med Order) 1 ea ONE ONCE N/A 12/04/17 10:45 12/04/17 10:46 UNV Review of Systems All systems were reviewed and are negative except as per HPI Physical Exam Date Time Temp Pulse Resp B/P (MAP) Pulse Ox O2 Delivery O2 Flow Rate FiO2 12/04/17 07:04 37.0 69 20 119/65 (83) 96 Room Air 12/04/17 04:05 37.0 63 18 115/58 (77) 94 Room Air 12/04/17 00:11 37.0 61 18 113/59 (77) 97 Room Air 12/04/17 00:00 96 Room Air 12/03/17 20:50 96 Room Air 12/03/17 19:17 60 17 96 12/03/17 18:17 60 18 140/79 98 Room Air 12/03/17 17:09 62 12/03/17 16:18 36.8 70 20 146/80 98 Room Air General Appearance: WD/WN, no apparent distress Head: normocephalic, atraumatic Eyes: normal inspection, EOMI, sclerae normal ENT: normal ENT inspection, pharynx normal Neck: supple, no adenopathy, thyroid normal, trachea midline Respiratory/Chest: chest non-tender, lungs clear, normal breath sounds, no respiratory distress Cardiovascular: regular rate, rhythm, no gallop, no murmur Abdomen/GI: normal bowel sounds, non tender, soft, no organomegaly Genitourinary - Male: + pertinent finding (Hand catheter draining dark urine) Back: normal inspection, no CVA tenderness Extremities/Musculoskelatal: no calf tenderness, normal capillary refill, non- tender Neurologic/Psych: alert, normal mood/affect, oriented x 3 Skin: normal color, warm/dry, no rash Lymphatic: no adenopathy Laboratory Results Date/Time Source Procedure Growth Status 12/03/17 18:46 Blood Blood Culture Pending Received 12/03/17 18:43 Blood Blood Culture Pending Received 12/03/17 17:20 Urine,Catheterized Urine Culture Pending Received Last 24 Hours Test 12/03/17 17:00 12/03/17 17:20 12/04/17 05:29 White Blood Count 5.71 K/uL 5.38 K/uL Red Blood Count 3.86 M/uL 3.48 M/uL Hemoglobin 11.0 g/dL 10.0 g/dL Hematocrit 34.0 % 30.5 % Mean Corpuscular Volume 88.1 fL 87.6 fL Mean Corpuscular Hemoglobin 28.5 pg 28.7 pg Mean Corpuscular Hemoglobin Concent 32.4 g/dl 32.8 g/dl Platelet Count 175 K/uL 167 K/uL Mean Platelet Volume 9.7 fL 9.8 fL Neutrophils (%) (Auto) 61.6 % 58.5 % Lymphocytes (%) (Auto) 23.8 % 23.8 % Monocytes (%) (Auto) 11.6 % 13.4 % Eosinophils (%) (Auto) 2.3 % 3.3 % Basophils (%) (Auto) 0.5 % 0.6 % Neutrophils # (Auto) 3.52 K/uL 3.15 K/uL Lymphocytes # (Auto) 1.36 K/uL 1.28 K/uL Monocytes # (Auto) 0.66 K/uL 0.72 K/uL Eosinophils # (Auto) 0.13 K/uL 0.18 K/uL Basophils # (Auto) 0.03 K/uL 0.03 K/uL RDW Standard Deviation 50.5 fL 49.5 fL RDW Coefficient of Variation 15.6 % 15.3 % Immature Granulocyte % (Auto) 0.2 % 0.4 % Immature Granulocyte # (Auto) 0.01 K/uL 0.02 K/uL Sodium Level 137 mmol/L 139 mmol/L Potassium Level 3.8 mmol/L 3.9 mmol/L Chloride Level 105 mmol/L 108 mmol/L Carbon Dioxide Level 27 mmol/L 27 mmol/L Anion Gap 5.0 mmol/L 4.0 mmol/L Blood Urea Nitrogen 29 mg/dl 29 mg/dl Creatinine 1.81 mg/dl 1.79 mg/dl Est Creatinine Clear Calc Drug Dose 29.4 ml/min 29.3 ml/min Estimated GFR () 39.7 40.3 Estimated GFR (Non- 34.3 34.8 BUN/Creatinine Ratio 15.8 16.3 Random Glucose 95 mg/dl 103 mg/dl Calcium Level 9.2 mg/dl 8.8 mg/dl Total Bilirubin 0.8 mg/dl 0.7 mg/dl Direct Bilirubin 0.2 mg/dl Aspartate Amino Transf (AST/SGOT) 12 U/L 10 U/L Alanine Aminotransferase (ALT/SGPT) 16 U/L 13 U/L Alkaline Phosphatase 331 U/L 277 U/L Total Protein 8.3 gm/dl 6.9 gm/dl Albumin 3.4 gm/dl 2.6 gm/dl Lipase 460 U/L Urine Color YELLOW Urine Appearance CLOUDY Urine pH 5.5 Urine Specific [place] 1.014 Urine Protein TRACE Urine Glucose (UA) NEG Urine Ketones NEG Urine Occult Blood 2+ Urine Nitrite NEG Urine Bilirubin NEG Urine Urobilinogen NEG Urine Leukocyte Esterase LARGE Urine WBC (Auto) >30 /hpf Urine RBC (Auto) 0-4 /hpf Urine Hyaline Casts (Auto) 0 /lpf Urine Epithelial Cells (Auto) 0-5 /lpf Urine Bacteria (Auto) NEG Magnesium Level 2.1 mg/dl Globulin 4.3 gm/dl Albumin/Globulin Ratio 0.6 Patient Name: PEBBLES Jo Unit Number: [id number] Dictated: 12/03/172305 Transcribed: 12/03/172305 AQUILES Printed Date/Time: [~ rep prt dt]/[~ rep prt tm] [~ rep ct labl] - [~ rep ct ivnm] [facility] [address] [place] [address] Dictated: 12/03/172305 Transcribed: 12/03/172305 PAJ Printed Date/Time: [~ rep prt dt]/[~ rep prt tm] [~ rep ct labl] - [~ rep ct ivnm] RENAL ULTRASOUND HISTORY: UTI with bacteremia , R/O sole renal abscess or obstruction COMPARISON: Abdomen and pelvis CT 11/30/2017. FINDINGS: Right kidney: 11.4 cm. No hydronephrosis. Multiple cysts the largest in the lower pole measuring 5.3 cm. This demonstrates a few septations. This also demonstrates a few internal echoes. The cortex is slightly echogenic. Left kidney: 12.5 cm. Moderate hydronephrosis, unchanged. Multiple cysts with the largest in the upper pole measuring 8 cm. The cortex is echogenic and demonstrates mild to moderate thinning. The Bladder: Decompressed by Hand catheter and not well visualized. Bladder wall thickening is noted. IMPRESSION: 1. No change in the moderate left hydronephrosis. 2. Bilateral renal cysts. The 5.3 cm lower pole cyst within the right kidney appears to be complex. 3. Bladder wall thickening. This may be due to the decompression by the Hand catheter. 4. Echogenic kidneys suggestive of medical renal disease. Electronically signed by: Abdi De Anda M.D. 12/03/2017 11:09 PM Dictated Date/Time: 12/03/2017 11:06 PM The status of this report is Signed. Draft = Not yet reviewed or approved by Radiologist. Signed = Reviewed and approved by Radiologist. <AttendingPhy>Erickson Hinkle MD</AttendingPhy> <FamilyPhy></ FamilyPhy> <PrimaryPhy>Deng Menezes M.D.</PrimaryPhy> <UnitNumber> [id number]</UnitNumber> <VisitNumber>[id number]</VisitNumber> <PatientName> PEBBLES ARBOLEDA</PatientName> <DateOfBirth>1935</DateOfBirth> <Location> C.4E</Location> <ServiceDate>12/03/17</ServiceDate> <MNE>ESINDI</MNE> < OrderingPhy>Erickson Hinkle MD</OrderingPhy> <OrderingPhyMNE>f rep ord dr barr</OrderingPhyMNE> <DictatingPhyMNE>f rep dict dr barr</DictatingPhyMNE > <CCListMNE>f rep ct mne</CCListMNE> <AdmittingPhyMNE>f pt admit dr barr</ AdmittingPhyMNE> <AttendingPhyMNE>f pt attend dr barr</AttendingPhyMNE> <ConsultingPhyMNE>f pt consult dr barr</ConsultingPhyMNE> <FamilyPhyMNE>f pt fam dr barr</FamilyPhyMNE> <OtherPhyMNE>f pt other dr barr</OtherPhyMNE> < PrimaryPhyMNE>f pt prim care dr barr</PrimaryPhyMNE> <ReferringPhyMNE>f pt referring dr barr</ReferringPhyMNE> Assessment & Plan 82-year-old male with prostate cancer and BPH now with Serratia bacteremia 0 with likely pyelonephritis and cystitis, possible prostatitis as well. He is remarkably nontoxic, and think that he could receive another dose of IV ceftriaxone today, would increase dose to 2 grams, then consider further treatment as an outpatient if remains well. Would continue IV antibiotics and still can demonstrate negative follow-up blood cultures. Will then require prolonged course of oral antibiotics. Case discussed with Dr. Mane. Will follow.
[2017-12-04] MEDS ORDERED: NURSING VERBAL MED ORDER ONE (10:45)
--- NOTE | 2017-12-04 11:39 | Urology Consultation ---
History General Date of Service: Dec 04, 2017. Chief Complaint: urosepsis Primary Care Physician: Deng Menezes M.D. Pt seen a urologist before?: Yes (Dr. Lunsford ) If yes, why?: prostate cancer History of Present Illness 82 yo male with a history of prostate cancer (treated with Casodex and Lupron injections) initially presented to [facility] ED as urged by Dr. Blount on 12-01 for fevers and fatigue. Admission recommended at that time, but the pt refused. The pt was then noted to have positive blood and urine cultures growing Serratia Mercens. He was called back by the ED to request he return, but he again refused. My office was then called by Dr. Torres to make us aware of the pt' s current condition and refusal of admission. He was then called back by our HEALTH AND NUTRITION SPECIALIST Christina Cee who was able to successfully urge the pt to return to the ED. Pt now admitted, and ID consulted for abx management. The denies any pain or n/v this morning. White count is normal. He is afebrile. Cr is 1.79. Baseline of 1.2 noted last April 2017. Hand catheter currently in place draining clear, yellow urine. The pt was previously doing CIC QID at home. Imaging Imaging: Ultrasound (renal u/s) Laboratory Last 24 Hours Test 12/03/17 17:00 12/03/17 17:20 12/04/17 05:29 White Blood Count 5.71 K/uL 5.38 K/uL Red Blood Count 3.86 M/uL 3.48 M/uL Hemoglobin 11.0 g/dL 10.0 g/dL Hematocrit 34.0 % 30.5 % Mean Corpuscular Volume 88.1 fL 87.6 fL Mean Corpuscular Hemoglobin 28.5 pg 28.7 pg Mean Corpuscular Hemoglobin Concent 32.4 g/dl 32.8 g/dl Platelet Count 175 K/uL 167 K/uL Mean Platelet Volume 9.7 fL 9.8 fL Neutrophils (%) (Auto) 61.6 % 58.5 % Lymphocytes (%) (Auto) 23.8 % 23.8 % Monocytes (%) (Auto) 11.6 % 13.4 % Eosinophils (%) (Auto) 2.3 % 3.3 % Basophils (%) (Auto) 0.5 % 0.6 % Neutrophils # (Auto) 3.52 K/uL 3.15 K/uL Lymphocytes # (Auto) 1.36 K/uL 1.28 K/uL Monocytes # (Auto) 0.66 K/uL 0.72 K/uL Eosinophils # (Auto) 0.13 K/uL 0.18 K/uL Basophils # (Auto) 0.03 K/uL 0.03 K/uL RDW Standard Deviation 50.5 fL 49.5 fL RDW Coefficient of Variation 15.6 % 15.3 % Immature Granulocyte % (Auto) 0.2 % 0.4 % Immature Granulocyte # (Auto) 0.01 K/uL 0.02 K/uL Sodium Level 137 mmol/L 139 mmol/L Potassium Level 3.8 mmol/L 3.9 mmol/L Chloride Level 105 mmol/L 108 mmol/L Carbon Dioxide Level 27 mmol/L 27 mmol/L Anion Gap 5.0 mmol/L 4.0 mmol/L Blood Urea Nitrogen 29 mg/dl 29 mg/dl Creatinine 1.81 mg/dl 1.79 mg/dl Est Creatinine Clear Calc Drug Dose 29.4 ml/min 29.3 ml/min Estimated GFR () 39.7 40.3 Estimated GFR (Non- 34.3 34.8 BUN/Creatinine Ratio 15.8 16.3 Random Glucose 95 mg/dl 103 mg/dl Calcium Level 9.2 mg/dl 8.8 mg/dl Total Bilirubin 0.8 mg/dl 0.7 mg/dl Direct Bilirubin 0.2 mg/dl Aspartate Amino Transf (AST/SGOT) 12 U/L 10 U/L Alanine Aminotransferase (ALT/SGPT) 16 U/L 13 U/L Alkaline Phosphatase 331 U/L 277 U/L Total Protein 8.3 gm/dl 6.9 gm/dl Albumin 3.4 gm/dl 2.6 gm/dl Lipase 460 U/L Urine Color YELLOW Urine Appearance CLOUDY Urine pH 5.5 Urine Specific [place] 1.014 Urine Protein TRACE Urine Glucose (UA) NEG Urine Ketones NEG Urine Occult Blood 2+ Urine Nitrite NEG Urine Bilirubin NEG Urine Urobilinogen NEG Urine Leukocyte Esterase LARGE Urine WBC (Auto) >30 /hpf Urine RBC (Auto) 0-4 /hpf Urine Hyaline Casts (Auto) 0 /lpf Urine Epithelial Cells (Auto) 0-5 /lpf Urine Bacteria (Auto) NEG Magnesium Level 2.1 mg/dl Globulin 4.3 gm/dl Albumin/Globulin Ratio 0.6 Problem List Medical Problems: (1) Bacteremia Status: Acute (2) Bacterial infection due to Serratia Status: Acute (3) Hydronephrosis of left kidney Status: Acute (4) Urinary tract infection Status: Acute (5) UTI (urinary tract infection) Status: Acute Past History cancer - prostate, hypertension, myocardial infarction, urinary tract infection , other (left hydronephrosis) Past Surgical History: appendectomy Family History Patient reports no known family medical history. Social History Hx Tobacco Use In Past Year?: No Smoking: quit greater than 1 year (quit 30 years ago, smoked pipe occasionally ) Drug use: none Marital status: Housing status: lives with family Occupation status: retired Allergies Coded Allergies: Atropine (Verified Allergy, Unknown, UNKNOWN, 11/30/17) Levofloxacin (Verified Allergy, Unknown, filled up with fluid, 11/30/17) Medications Home Medications: Home Meds and Scripts Medications Dose Route/Sig Max Daily Dose Days Date Category Dose Instructions Omnicef (Cefdinir) 300 Mg Cap 300 Mg PO Q12H 14 12/01/17 Rx Toprol-Xl (Metoprolol Succinate) 25 Mg Tabcr 25 Mg PO DAILY 11/30/17 Reported Prinivil (Lisinopril) 10 Mg Tab 10 Mg PO DAILY 11/30/17 Reported Hctz (Hydrochlorothiazide) 25 Mg Tab 12.5 Mg PO DIRECTED 11/30/17 Reported 1/2 TABLET ON ODD DAYS ONLY Casodex (Bicalutamide) 50 Mg Tab 50 Mg PO TID 11/30/17 Reported Inpatient Medications: Current Inpatient Medications Medications (Trade) Dose Ordered Sig/Jenny Route Start Time Stop Time Status Last Admin Dose Admin Bicalutamide (Casodex Tab) 50 mg TID PO 12/03/17 20:10 01/02/18 20:59 12/04/17 08:15 50 MG Lisinopril (Zestril Tab) 10 mg DAILY PO 12/04/17 08:00 01/03/18 08:59 12/04/17 08:13 10 MG Metoprolol Succinate (Toprol Xl Tab) 25 mg DAILY PO 12/04/17 08:00 01/03/18 08:59 12/04/17 08:13 25 MG Lactobacillus Acidophilus (Floranex Tab) 4 tab TIDM PO 12/04/17 08:00 01/03/18 07:59 12/04/17 08:13 4 TAB Hydrochlorothiazide (Hydrochlorothiazide Tab) 12.5 mg Q2D@0900 PO 12/05/17 08:00 01/04/18 07:59 Sodium Chloride 1,000 ml @ 80 mls/hr [id number] IV 12/04/17 10:20 01/03/18 10:19 Ceftriaxone Sodium 2000 mg/ Dextrose 70 ml @ 100 mls/hr Q24H IV 12/04/17 14:00 12/14/17 13:59 Review of Systems Review of Systems Constitutional: No fever, No chills Eyes: No double vision Neurological: No dizzy Endocrine: No excessive thirst Gastrointestinal: No abdominal pain, No nausea, No vomiting Cardiovascular: No chest pain Respiratory: No shortness of breath Skin: No rash Musculoskeletal: + arthritis Male : No painful urination, No blood in urine Physical Exam Vital Signs: Vital Signs Past 12 Hours Date Time Temp Pulse Resp B/P (MAP) Pulse Ox O2 Delivery O2 Flow Rate FiO2 12/04/17 11:24 36.5 58 20 129/72 (91) 95 12/04/17 07:04 37.0 69 20 119/65 (83) 96 Room Air 12/04/17 04:05 37.0 63 18 115/58 (77) 94 Room Air 12/04/17 00:11 37.0 61 18 113/59 (77) 97 Room Air 12/04/17 00:00 96 Room Air Physical Exam: General Appearance: no apparent distress Eyes: bilateral eyes normal inspection ENT: hearing grossly normal Neck: no JVD Respiratory/Chest: no respiratory distress, no accessory muscle use Cardiovascular: no JVD Extremities: normal inspection Neurologic/Psychiatric: alert, normal mood/affect, oriented x 3 Skin: normal color Assessment & Plan Assessment & Plan A/P: Urosepsis, Urinary retention, prostate cancer 1. Urosepsis Management of IV abx per ID. Appreciate the consult. 2. Urinary retention Resume CIC QID prior to discharge. 3. Prostate Cancer- - ct4 metastatic [place] 5+5 Will check a PSA while inpatient. Consult oncology per Dr. Lunsford. Continue Casodex. Pt requesting new Rx. Will decrease to once daily dosing per Dr. Lunsford and send new Rx. Lupron injections as scheduled per our office. The pt is scheduled to f/u with Dr. Lunsford on 01-01. Will keep as scheduled. Thanks for the consult. No further management at this time. Recall PRN issues.
--- NOTE | 2017-12-04 11:55 | Medical Student: [facility] ---
Consultation Date of Consultation: Dec 04, 2017. Reason for Consultation: Metastatic Prostate CA on Lupron and Casodex therapy, CIC QID at home History of Present Illness Mr. Winter is a 82yM with metastatic prostate CA, acute urinary retention and chronic renal insufficiency. Currently under the care of Dr. Lunsford, receiving medical therapy of Lupron injections and Casadex. Denies any issues or complications with CIC at home for acute urinary retention. Presented to ED with LUTS symptoms, fevers and chills on 11/[address] Blount, diagnosed with UTI. Admission was recommended but patient declined at this time. Omnicef initiated and patient discharged home. Blood cultures grew out Serratia marcescens, patient was contacted immediately and recommended return to ED. Patient again declined ED recommendation, our office was contacted directly by the ED physicians to make aware of situation. Patient was then called by Christina BRADLEY and successfully prompted patient to agree to admission for IV antibiotic therapy. Currently under the care of hospitalist and Dr. Alexandra with infectious disease. Feeling generally well, sitting up in bed with no acute distress. Hand catheter in place, draining clear yellow. White count is normal. He is afebrile. Cr is 1.79. Baseline of 1.2 noted last April 2017. Denies chest pain, shortness of breath. Denies abdominal pain, n/v/d. Denies dysuria or hematuria. Past Medical/Surgical History Medical History: Metastatic prostate CA, Left hydronephrosis, acute urinary retention requiring CIC 4 times a day, Chronic renal insufficiency, CAD, Aortic Regurgitation, HTN, dyslipidemia Surgical History: Appendectomy Family History Ovarian Ca - Sister Social History Smoking Status: Former Smoker History of Alcohol Use: No Drug Use: none Marital Status: Housing Status: lives with family Occupation Status: retired Review of Systems Constitutional: No fever, No chills Respiratory: No cough, No shortness of breath Cardiac: No chest pain Male : + see HPI Endo: No fatigue Skin: No rash Allergies Coded Allergies: Atropine (Verified Allergy, Unknown, UNKNOWN, 11/30/17) Levofloxacin (Verified Allergy, Unknown, filled up with fluid, 11/30/17) Medications Current Inpatient Medications Medications (Trade) Dose Ordered Sig/Jenny Route Start Time Stop Time Status Last Admin Dose Admin Bicalutamide (Casodex Tab) 50 mg TID PO 12/03/17 20:10 01/02/18 20:59 12/04/17 08:15 50 MG Lisinopril (Zestril Tab) 10 mg DAILY PO 12/04/17 08:00 01/03/18 08:59 12/04/17 08:13 10 MG Metoprolol Succinate (Toprol Xl Tab) 25 mg DAILY PO 12/04/17 08:00 01/03/18 08:59 12/04/17 08:13 25 MG Lactobacillus Acidophilus (Floranex Tab) 4 tab TIDM PO 12/04/17 08:00 01/03/18 07:59 12/04/17 08:13 4 TAB Hydrochlorothiazide (Hydrochlorothiazide Tab) 12.5 mg Q2D@0900 PO 12/05/17 08:00 01/04/18 07:59 Sodium Chloride 1,000 ml @ 80 mls/hr [id number] IV 12/04/17 10:20 01/03/18 10:19 Ceftriaxone Sodium 2000 mg/ Dextrose 70 ml @ 100 mls/hr Q24H IV 12/04/17 14:00 12/14/17 13:59 Physical Exam Date Time Temp Pulse Resp B/P (MAP) Pulse Ox O2 Delivery O2 Flow Rate FiO2 12/04/17 11:24 36.5 58 20 129/72 (91) 95 12/04/17 07:04 37.0 69 20 119/65 (83) 96 Room Air 12/04/17 04:05 37.0 63 18 115/58 (77) 94 Room Air 12/04/17 00:11 37.0 61 18 113/59 (77) 97 Room Air 12/04/17 00:00 96 Room Air 12/03/17 20:50 96 Room Air 12/03/17 19:17 60 17 96 12/03/17 18:17 60 18 140/79 98 Room Air 12/03/17 17:09 62 12/03/17 16:18 36.8 70 20 146/80 98 Room Air General Appearance: WD/WN, no apparent distress ENT: hearing grossly normal Neck: no JVD Respiratory: no respiratory distress, no accessory muscle use Abdomen: non tender Neurologic/Psychiatric: alert, normal mood/affect, oriented x 3 Skin: normal color, warm/dry, no rash Lymphatic: no adenopathy Laboratory Results Last 24 Hours Test 12/03/17 17:00 12/03/17 17:20 12/04/17 05:29 White Blood Count 5.71 K/uL 5.38 K/uL Red Blood Count 3.86 M/uL 3.48 M/uL Hemoglobin 11.0 g/dL 10.0 g/dL Hematocrit 34.0 % 30.5 % Mean Corpuscular Volume 88.1 fL 87.6 fL Mean Corpuscular Hemoglobin 28.5 pg 28.7 pg Mean Corpuscular Hemoglobin Concent 32.4 g/dl 32.8 g/dl Platelet Count 175 K/uL 167 K/uL Mean Platelet Volume 9.7 fL 9.8 fL Neutrophils (%) (Auto) 61.6 % 58.5 % Lymphocytes (%) (Auto) 23.8 % 23.8 % Monocytes (%) (Auto) 11.6 % 13.4 % Eosinophils (%) (Auto) 2.3 % 3.3 % Basophils (%) (Auto) 0.5 % 0.6 % Neutrophils # (Auto) 3.52 K/uL 3.15 K/uL Lymphocytes # (Auto) 1.36 K/uL 1.28 K/uL Monocytes # (Auto) 0.66 K/uL 0.72 K/uL Eosinophils # (Auto) 0.13 K/uL 0.18 K/uL Basophils # (Auto) 0.03 K/uL 0.03 K/uL RDW Standard Deviation 50.5 fL 49.5 fL RDW Coefficient of Variation 15.6 % 15.3 % Immature Granulocyte % (Auto) 0.2 % 0.4 % Immature Granulocyte # (Auto) 0.01 K/uL 0.02 K/uL Sodium Level 137 mmol/L 139 mmol/L Potassium Level 3.8 mmol/L 3.9 mmol/L Chloride Level 105 mmol/L 108 mmol/L Carbon Dioxide Level 27 mmol/L 27 mmol/L Anion Gap 5.0 mmol/L 4.0 mmol/L Blood Urea Nitrogen 29 mg/dl 29 mg/dl Creatinine 1.81 mg/dl 1.79 mg/dl Est Creatinine Clear Calc Drug Dose 29.4 ml/min 29.3 ml/min Estimated GFR () 39.7 40.3 Estimated GFR (Non- 34.3 34.8 BUN/Creatinine Ratio 15.8 16.3 Random Glucose 95 mg/dl 103 mg/dl Calcium Level 9.2 mg/dl 8.8 mg/dl Total Bilirubin 0.8 mg/dl 0.7 mg/dl Direct Bilirubin 0.2 mg/dl Aspartate Amino Transf (AST/SGOT) 12 U/L 10 U/L Alanine Aminotransferase (ALT/SGPT) 16 U/L 13 U/L Alkaline Phosphatase 331 U/L 277 U/L Total Protein 8.3 gm/dl 6.9 gm/dl Albumin 3.4 gm/dl 2.6 gm/dl Lipase 460 U/L Urine Color YELLOW Urine Appearance CLOUDY Urine pH 5.5 Urine Specific [place] 1.014 Urine Protein TRACE Urine Glucose (UA) NEG Urine Ketones NEG Urine Occult Blood 2+ Urine Nitrite NEG Urine Bilirubin NEG Urine Urobilinogen NEG Urine Leukocyte Esterase LARGE Urine WBC (Auto) >30 /hpf Urine RBC (Auto) 0-4 /hpf Urine Hyaline Casts (Auto) 0 /lpf Urine Epithelial Cells (Auto) 0-5 /lpf Urine Bacteria (Auto) NEG Magnesium Level 2.1 mg/dl Globulin 4.3 gm/dl Albumin/Globulin Ratio 0.6 Assessment & Plan A/P: Urosepsis, Acute urinary retention, Metastatic prostate cancer Urosepsis: Continue IV antibiotics as recommended by ID. Metastatic Prostate CA - ct4 metastatic [place] 5+5: Discussed with Dr. Lunsford, will repeat PSA and consult heme/oncology while inpatient. Continue Casodex, patient requesting new Rx, will decrease to once daily dosing per Dr. Lunsford (new Rx sent by Kassie BRADLEY) Lupron injections as scheduled by our office outpatient. Acute Urinary Retention: Okay to discontinue Hand catheter prior to discharge and continue CIC 4 times a day. Plan to followup with Dr. Lunsford as outpatient on January 01 as previously scheduled. Please call with any further concerns. Thank you for allowing us to participate in the care of Mr. Winter.
[2017-12-04] MEDS ORDERED: BICA50TA2 PO (12:03)
[2017-12-04] MEDS: SODIUM CHLORIDE 0.9% 1000ML 1,000 ML IV SCH ×2 (12:27→23:33)
--- NOTE | 2017-12-04 12:39 | Hospitalist Progress Note ---
Hospitalist Progress Note Date of Service Dec 04, 2017. Subjective Pt evaluation today including: conversation w/ patient, physical exam, lab review, review of studies, review of inpatient medication list Voiding: lanier catheter in place Patient feeling well. Lanier placed at admission- discussed removing and continue CIC at discharge- patient is happy with this plan. Seen by ID- possible discharge tomorrow. Seen by Urology- requested oncology consultation. Eating and drinking OK. Patient denies any fever, chills, sweats, lightheadedness, dizziness, vision changes, CP, palpitations, edema, SOB, wheezing, cough, abdominal pain, nausea, vomiting, diarrhea, urinary symptoms, melena, numbness/tingling, weakness, muscle/joint pain, anxiety/depression, active bleeding, or new skin discoloration/changes. Medications Current Inpatient Medications Medications (Trade) Dose Ordered Sig/Jenny Route Start Time Stop Time Status Last Admin Dose Admin Bicalutamide (Casodex Tab) 50 mg TID PO 12/03/17 20:10 01/02/18 20:59 12/04/17 08:15 50 MG Lisinopril (Zestril Tab) 10 mg DAILY PO 12/04/17 08:00 01/03/18 08:59 12/04/17 08:13 10 MG Metoprolol Succinate (Toprol Xl Tab) 25 mg DAILY PO 12/04/17 08:00 01/03/18 08:59 12/04/17 08:13 25 MG Lactobacillus Acidophilus (Floranex Tab) 4 tab TIDM PO 12/04/17 08:00 01/03/18 07:59 12/04/17 08:13 4 TAB Hydrochlorothiazide (Hydrochlorothiazide Tab) 12.5 mg Q2D@0900 PO 12/05/17 08:00 01/04/18 07:59 Sodium Chloride 1,000 ml @ 80 mls/hr [id number] IV 12/04/17 10:20 01/03/18 10:19 Ceftriaxone Sodium 2000 mg/ Dextrose 70 ml @ 100 mls/hr Q24H IV 12/04/17 14:00 12/14/17 13:59 Objective Vital Signs Date Time Temp Pulse Resp B/P (MAP) Pulse Ox O2 Delivery O2 Flow Rate FiO2 12/04/17 12:12 Room Air 12/04/17 11:24 36.5 58 20 129/72 (91) 95 12/04/17 07:04 37.0 69 20 119/65 (83) 96 Room Air 12/04/17 04:05 37.0 63 18 115/58 (77) 94 Room Air 12/04/17 00:11 37.0 61 18 113/59 (77) 97 Room Air 12/04/17 00:00 96 Room Air 12/03/17 20:50 96 Room Air 12/03/17 19:17 60 17 96 12/03/17 18:17 60 18 140/79 98 Room Air 12/03/17 17:09 62 12/03/17 16:18 36.8 70 20 146/80 98 Room Air Physical Exam General Appearance: no apparent distress Eyes: normal inspection, PERRL ENT: hearing grossly normal Neck: supple Respiratory/Chest: lungs clear, no respiratory distress, no accessory muscle use Cardiovascular: regular rate, rhythm, + systolic murmur Abdomen: normal bowel sounds, non tender, soft Extremities: no pedal edema, no calf tenderness Neurologic/Psychiatric: alert, normal mood/affect, oriented x 3 Skin: normal color, warm/dry, no rash Laboratory Results Last 24 Hours Test 12/03/17 17:00 12/03/17 17:20 12/04/17 05:29 12/04/17 11:48 White Blood Count 5.71 K/uL 5.38 K/uL Red Blood Count 3.86 M/uL 3.48 M/uL Hemoglobin 11.0 g/dL 10.0 g/dL Hematocrit 34.0 % 30.5 % Mean Corpuscular Volume 88.1 fL 87.6 fL Mean Corpuscular Hemoglobin 28.5 pg 28.7 pg Mean Corpuscular Hemoglobin Concent 32.4 g/dl 32.8 g/dl Platelet Count 175 K/uL 167 K/uL Mean Platelet Volume 9.7 fL 9.8 fL Neutrophils (%) (Auto) 61.6 % 58.5 % Lymphocytes (%) (Auto) 23.8 % 23.8 % Monocytes (%) (Auto) 11.6 % 13.4 % Eosinophils (%) (Auto) 2.3 % 3.3 % Basophils (%) (Auto) 0.5 % 0.6 % Neutrophils # (Auto) 3.52 K/uL 3.15 K/uL Lymphocytes # (Auto) 1.36 K/uL 1.28 K/uL Monocytes # (Auto) 0.66 K/uL 0.72 K/uL Eosinophils # (Auto) 0.13 K/uL 0.18 K/uL Basophils # (Auto) 0.03 K/uL 0.03 K/uL RDW Standard Deviation 50.5 fL 49.5 fL RDW Coefficient of Variation 15.6 % 15.3 % Immature Granulocyte % (Auto) 0.2 % 0.4 % Immature Granulocyte # (Auto) 0.01 K/uL 0.02 K/uL Sodium Level 137 mmol/L 139 mmol/L Potassium Level 3.8 mmol/L 3.9 mmol/L Chloride Level 105 mmol/L 108 mmol/L Carbon Dioxide Level 27 mmol/L 27 mmol/L Anion Gap 5.0 mmol/L 4.0 mmol/L Blood Urea Nitrogen 29 mg/dl 29 mg/dl Creatinine 1.81 mg/dl 1.79 mg/dl Est Creatinine Clear Calc Drug Dose 29.4 ml/min 29.3 ml/min Estimated GFR () 39.7 40.3 Estimated GFR (Non- 34.3 34.8 BUN/Creatinine Ratio 15.8 16.3 Random Glucose 95 mg/dl 103 mg/dl Calcium Level 9.2 mg/dl 8.8 mg/dl Total Bilirubin 0.8 mg/dl 0.7 mg/dl Direct Bilirubin 0.2 mg/dl Aspartate Amino Transf (AST/SGOT) 12 U/L 10 U/L Alanine Aminotransferase (ALT/SGPT) 16 U/L 13 U/L Alkaline Phosphatase 331 U/L 277 U/L Total Protein 8.3 gm/dl 6.9 gm/dl Albumin 3.4 gm/dl 2.6 gm/dl Lipase 460 U/L Urine Color YELLOW Urine Appearance CLOUDY Urine pH 5.5 Urine Specific [place] 1.014 Urine Protein TRACE Urine Glucose (UA) NEG Urine Ketones NEG Urine Occult Blood 2+ Urine Nitrite NEG Urine Bilirubin NEG Urine Urobilinogen NEG Urine Leukocyte Esterase LARGE Urine WBC (Auto) >30 /hpf Urine RBC (Auto) 0-4 /hpf Urine Hyaline Casts (Auto) 0 /lpf Urine Epithelial Cells (Auto) 0-5 /lpf Urine Bacteria (Auto) NEG Magnesium Level 2.1 mg/dl Globulin 4.3 gm/dl Albumin/Globulin Ratio 0.6 Assessment and Plan 82 y M with PMHx of HTN, 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 Lunsford at the beginning of this month. Patient was recently in the ER 3 days ago and found to have a UTI where blood cultures were drawn. At that point in time he refused to be admitted, and was started on Omnicef and discharged from the ER. Blood cultures have returned positive 2/2 with Serratia marcescens. Pt admitted and placed on IV ceftriaxone. Serratia bacteremia w/ likely pyelonephritis and UTI POA, ?prostatitis- BCx and UCx from 11/30 w/ pansensitive Serratia marcescens: - Admitted to med/surg - IV Rocephin- started on 12/03- increased to 2g today - Floranex TID while on antibiotics - Follow repeat UCx and BCx- obtained on 12/03 - Renal US w/ STABLE L hydronephrosis when compared to CT on 11/30 - ID consulted, appreciate recommendation- continue IV abx, if remains well and cultures negative, can consider transition to prolonged oral abx treatment Urinary retention, metastatic prostate cancer- follows w/ Dr. Lunsford: - Discontinue Lanier prior to discharge and resume CIC QID - Urology consulted- recheck PSA, consult oncology, Casodex decreased from 50 mg TID to daily, continue Lupron injections, scheduled f/u on 01/01 CKD stage III- STABLE: Follow PRP HTN, h/o VT x2- STABLE: Continue Metoprolol, Lisinopril, and HCTZ DVT prophylaxis: Ambulation CODE STATUS: Full code Dispo: From home- likely discharge to home tomorrow
[2017-12-04] MEDS: CEFTRIAXONE SOD INJ 2,000 MG in DEXTROSE 5% 50ML 50 ML IV SCH (13:35)
[2017-12-04] MEDS ORDERED: CEFTRIAXONE SOD INJ 1,000 MG in DEXTROSE 5% 50ML 50 ML IV SCH (16:00)
--- NOTE | 2017-12-04 17:21 | Oncology Consultation ---
Oncology/Heme Consultation Date of Consultation: Dec 04, 2017. 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 He came to the attention of Urology last month after developing a progressive urinary obstruction. He was found to have a enlarged prostate and biopsies 11/02/17 revealed [place] 5+5 prostate adenocarcinoma. His PSA on 10/29 was 574 and staging scans revealed bony metastatic disease and retroperitoneal lymphadenopathy causing left hydroureteronephrosis. He was started on Casodex and then Lupron and his PSA as of today was 38. He was admitted feeling fatigued and weak and was found to have Serratia in his blood and urine. He is now on antibiotics and is feeling much better. I was consulted to introduce myself and discuss the possibility of adding chemotherapy to his ADT. He has no pain and has in general felt better since starting treatment, excepting this current situation. Past Medical/Surgical History Medical Problems: (1) Bacteremia Status: Acute (2) Bacterial infection due to Serratia Status: Acute (3) Hydronephrosis of left kidney Status: Acute (4) Urinary tract infection Status: Acute (5) UTI (urinary tract infection) Status: Acute Family History Patient reports no known family medical history. Social History Smoking Status: Former Smoker Alcohol Use: occasionally (1 glass of Radha occasionally) Drug Use: none Marital Status: Housing Status: lives with family Occupation Status: retired Allergies Coded Allergies: Atropine (Verified Allergy, Unknown, UNKNOWN, 11/30/17) Levofloxacin (Verified Allergy, Unknown, filled up with fluid, 11/30/17) Home Medications Scheduled Bicalutamide (Casodex), 50 MG PO QD Cefdinir (Omnicef), 300 MG PO Q12H Hydrochlorothiazide (Hctz), 12.5 MG PO DIRECTED Lisinopril (Prinivil), 10 MG PO DAILY Metoprolol Succ (Toprol Xl) (Toprol-Xl), 25 MG PO DAILY Current Inpatient Medications Current Inpatient Medications Medications (Trade) Dose Ordered Sig/Jenny Route Start Time Stop Time Status Last Admin Dose Admin Bicalutamide (Casodex Tab) 50 mg TID PO 12/03/17 20:10 01/02/18 20:59 12/04/17 13:34 50 MG Lisinopril (Zestril Tab) 10 mg DAILY PO 12/04/17 08:00 01/03/18 08:59 12/04/17 08:13 10 MG Metoprolol Succinate (Toprol Xl Tab) 25 mg DAILY PO 12/04/17 08:00 01/03/18 08:59 12/04/17 08:13 25 MG Lactobacillus Acidophilus (Floranex Tab) 4 tab TIDM PO 12/04/17 08:00 01/03/18 07:59 12/04/17 12:26 4 TAB Hydrochlorothiazide (Hydrochlorothiazide Tab) 12.5 mg Q2D@0900 PO 12/05/17 08:00 01/04/18 07:59 Sodium Chloride 1,000 ml @ 80 mls/hr [id number] IV 12/04/17 10:20 01/03/18 10:19 12/04/17 12:27 80 MLS/HR Ceftriaxone Sodium 2000 mg/ Dextrose 70 ml @ 100 mls/hr Q24H IV 12/04/17 14:00 12/14/17 13:59 12/04/17 13:35 100 MLS/HR Review of Systems Constitutional: + fatigue, No fever, No chills Respiratory: No cough, No shortness of breath Cardiovascular: No chest pain Abdomen: No pain, No nausea Musculoskeletal: No joint pain, No muscle pain Genitourinary - Male: + urinary retention (requires self-catheterization) Neurologic: No paralysis, No weakness Hematologic / Lymphatic: No abnormal bleeding/bruising Physical Exam Date Time Temp Pulse Resp B/P (MAP) Pulse Ox O2 Delivery O2 Flow Rate FiO2 12/04/17 15:28 36.6 59 16 112/60 (77) 92 Room Air 12/04/17 12:12 Room Air 12/04/17 11:24 36.5 58 20 129/72 (91) 95 12/04/17 07:04 37.0 69 20 119/65 (83) 96 Room Air 12/04/17 04:05 37.0 63 18 115/58 (77) 94 Room Air 12/04/17 00:11 37.0 61 18 113/59 (77) 97 Room Air 12/04/17 00:00 96 Room Air 12/03/17 20:50 96 Room Air 12/03/17 19:17 60 17 96 12/03/17 18:17 60 18 140/79 98 Room Air 12/03/17 17:09 62 General Appearance: WD/WN, no apparent distress ENT: pharynx normal (mucous membranes moist) Respiratory/Chest: lungs clear Cardiovascular: regular rate, rhythm Abdomen/GI: non tender, soft Extremities/Musculoskelatal: no pedal edema Neurologic/Psych: alert, oriented x 3 Laboratory Results Last 24 Hours Test 12/03/17 17:20 12/04/17 05:29 Urine Color YELLOW Urine Appearance CLOUDY Urine pH 5.5 Urine Specific [place] 1.014 Urine Protein TRACE Urine Glucose (UA) NEG Urine Ketones NEG Urine Occult Blood 2+ Urine Nitrite NEG Urine Bilirubin NEG Urine Urobilinogen NEG Urine Leukocyte Esterase LARGE Urine WBC (Auto) >30 /hpf Urine RBC (Auto) 0-4 /hpf Urine Hyaline Casts (Auto) 0 /lpf Urine Epithelial Cells (Auto) 0-5 /lpf Urine Bacteria (Auto) NEG White Blood Count 5.38 K/uL Red Blood Count 3.48 M/uL Hemoglobin 10.0 g/dL Hematocrit 30.5 % Mean Corpuscular Volume 87.6 fL Mean Corpuscular Hemoglobin 28.7 pg Mean Corpuscular Hemoglobin Concent 32.8 g/dl Platelet Count 167 K/uL Mean Platelet Volume 9.8 fL Neutrophils (%) (Auto) 58.5 % Lymphocytes (%) (Auto) 23.8 % Monocytes (%) (Auto) 13.4 % Eosinophils (%) (Auto) 3.3 % Basophils (%) (Auto) 0.6 % Neutrophils # (Auto) 3.15 K/uL Lymphocytes # (Auto) 1.28 K/uL Monocytes # (Auto) 0.72 K/uL Eosinophils # (Auto) 0.18 K/uL Basophils # (Auto) 0.03 K/uL RDW Standard Deviation 49.5 fL RDW Coefficient of Variation 15.3 % Immature Granulocyte % (Auto) 0.4 % Immature Granulocyte # (Auto) 0.02 K/uL Sodium Level 139 mmol/L Potassium Level 3.9 mmol/L Chloride Level 108 mmol/L Carbon Dioxide Level 27 mmol/L Anion Gap 4.0 mmol/L Blood Urea Nitrogen 29 mg/dl Creatinine 1.79 mg/dl Est Creatinine Clear Calc Drug Dose 29.3 ml/min Estimated GFR () 40.3 Estimated GFR (Non- 34.8 BUN/Creatinine Ratio 16.3 Random Glucose 103 mg/dl Calcium Level 8.8 mg/dl Magnesium Level 2.1 mg/dl Total Bilirubin 0.7 mg/dl Aspartate Amino Transf (AST/SGOT) 10 U/L Alanine Aminotransferase (ALT/SGPT) 13 U/L Alkaline Phosphatase 277 U/L Total Protein 6.9 gm/dl Albumin 2.6 gm/dl Globulin 4.3 gm/dl Albumin/Globulin Ratio 0.6 Prostate Specific Antigen 38.900 ng/ml Assessment & Plan Mr. Winter has high-volume metastatic castration-sensitive prostate cancer. By PSA, he is having a nice response to combination ADT. Given that he has high- volume disease, he may benefit from the addition of chemotherapy with Docetaxel to his ADT regimen. I can discuss this with him as an outpatient, particularly since he would not be a candidate for chemotherapy until he is cleared of his infection. Beyond that, he is somewhat skeptical of the idea of chemotherapy. I will have my office contact him to arrange an outpatient follow up appointment. For now, the focus of his care will be on his infection. I will sign off for now , but would be happy to answer any questions or return if new issues arise.
[2017-12-05 04:28] VITALS: BP 145/74; PULSE 60; TEMP 36.4; O2SAT 96
[2017-12-05 07:08] LABS: CALCIUM 9.2 mg/dl (8.5-10.1); CREATININE 1.67 mg/dl (0.60-1.40)
[2017-12-05 07:42] VITALS: BP 126/67; PULSE 68; TEMP 36.9; O2SAT 96
--- NOTE | 2017-12-05 08:32 | Medical Student: [facility] ---
Med Student Progress Note Date of Service Dec 05, 2017. Subjective Pt evaluation today including: conversation w/ patient, physical exam, chart review, lab review, review of studies, review of inpatient medication list Pain: 0 PO Intake: tolerating regular diet well Voiding: lanier catheter in place (draining clear pale yellow) Mr. Winter is doing well today stating he is ready to go home. Tolerating PO well and ambulating in halls. Evaluated by Dr. Garcia with heme/onc yesterday, recommend outpatient visit to discuss chemotherapy options once infection clears. Afebrile, preliminary urine cx negative. Cr remaining stable, WBC not assessed today. PSA 38.9 (PSA 574 on 10/29/17) Denies n/v/d, chest pains or shortness of breath. Review of Systems Constitutional: No fever, No chills Respiratory: No cough, No wheezing, No shortness of breath Cardiac: No chest pain Abdomen: No pain, No nausea, No vomiting, No diarrhea Male : + see HPI Endo: No fatigue Skin: No rash Objective Vital Signs Date Time Temp Pulse Resp B/P (MAP) Pulse Ox O2 Delivery O2 Flow Rate FiO2 12/05/17 07:42 36.9 68 18 126/67 (86) 96 12/05/17 04:28 36.4 60 20 145/74 (97) 96 Room Air 12/05/17 00:00 Room Air 12/04/17 23:13 36.5 59 18 160/77 (104) 96 Room Air 12/04/17 20:50 Room Air 12/04/17 20:43 36.5 58 16 119/63 (81) 97 Room Air 12/04/17 15:28 36.6 59 16 112/60 (77) 92 Room Air 12/04/17 12:12 Room Air 12/04/17 11:24 36.5 58 20 129/72 (91) 95 Physical Exam General Appearance: WD/WN, no apparent distress ENT: hearing grossly normal Neck: no JVD Respiratory/Chest: no respiratory distress, no accessory muscle use Cardiovascular: no murmur Extremities: normal inspection Neurologic/Psychiatric: alert, normal mood/affect, oriented x 3 Skin: normal color, warm/dry Laboratory Results Last 24 Hours Test 12/05/17 05:33 Sodium Level 138 mmol/L Potassium Level 4.0 mmol/L Chloride Level 109 mmol/L Carbon Dioxide Level 24 mmol/L Anion Gap 5.0 mmol/L Blood Urea Nitrogen 29 mg/dl Creatinine 1.67 mg/dl Est Creatinine Clear Calc Drug Dose 31.8 ml/min Estimated GFR () 43.8 Estimated GFR (Non- 37.8 BUN/Creatinine Ratio 17.6 Random Glucose 103 mg/dl Calcium Level 9.2 mg/dl Assessment and Plan Assessment and Plan: A/P: Urosepsis, metastatic prostate CA, Acute urinary retention Continue antibiotic management per ID recommendations. Remove lanier catheter prior to discharge, return to CIC at home. Keep followup with Dr. Lunsford on 01/01 as previously scheduled. Continue Casodex and Lupron injections per our office. No further recommendations, please call with any change in condition. Okay to discharge home from standpoint.
[2017-12-05] MEDS: METOPROLOL SUCC 25MG EXT REL TAB PO SCH (09:00)
[2017-12-05] MEDS: LISINOPRIL 10 MG TAB PO SCH (09:00)
[2017-12-05] MEDS: LACTOBACILLUS ACIDOPHILUS (FLORANEX) TAB PO SCH ×2 (09:00→12:16)
[2017-12-05] MEDS: HYDROCHLOROTHIAZIDE 25 MG TAB PO SCH ×2 (09:00→11:29)
[2017-12-05] MEDS: BICALUTAMIDE 50 MG TAB PO SCH (09:00)
--- NOTE | 2017-12-05 09:10 | Progress Note ---
Subjective Date of Service: Dec 05, 2017. Subjective Pt evaluation today including: conversation w/ patient, chart review Voiding: lanier catheter in place (patent, draining clear, yellow urine ) Pt denies pain this morning. Lanier remains in place draining clear, yellow urine. Repeat cultures preliminarily negative. Problem List Medical Problems: (1) Bacteremia Status: Acute (2) Bacterial infection due to Serratia Status: Acute (3) Hydronephrosis of left kidney Status: Acute (4) Urinary tract infection Status: Acute (5) UTI (urinary tract infection) Status: Acute Review of Systems Constitutional: No fever, No chills Respiratory: No shortness of breath Cardiac: No chest pain Abdomen: No pain, No nausea, No vomiting Male : No dysuria, No hematuria Heme: No abnormal bleeding/bruising Objective Vital Signs Date Time Temp Pulse Resp B/P (MAP) Pulse Ox O2 Delivery O2 Flow Rate FiO2 12/05/17 07:42 36.9 68 18 126/67 (86) 96 12/05/17 04:28 36.4 60 20 145/74 (97) 96 Room Air 12/05/17 00:00 Room Air 12/04/17 23:13 36.5 59 18 160/77 (104) 96 Room Air 12/04/17 20:50 Room Air 12/04/17 20:43 36.5 58 16 119/63 (81) 97 Room Air 12/04/17 15:28 36.6 59 16 112/60 (77) 92 Room Air 12/04/17 12:12 Room Air 12/04/17 11:24 36.5 58 20 129/72 (91) 95 Physical Exam General Appearance: no apparent distress Eyes: normal inspection ENT: hearing grossly normal Neck: no JVD Respiratory/Chest: no respiratory distress, no accessory muscle use Cardiovascular: no JVD Extremities: normal inspection Neurologic/Psychiatric: alert, normal mood/affect, oriented x 3 Skin: normal color Laboratory Results Last 24 Hours Test 12/05/17 05:33 Sodium Level 138 mmol/L Potassium Level 4.0 mmol/L Chloride Level 109 mmol/L Carbon Dioxide Level 24 mmol/L Anion Gap 5.0 mmol/L Blood Urea Nitrogen 29 mg/dl Creatinine 1.67 mg/dl Est Creatinine Clear Calc Drug Dose 31.8 ml/min Estimated GFR () 43.8 Estimated GFR (Non- 37.8 BUN/Creatinine Ratio 17.6 Random Glucose 103 mg/dl Calcium Level 9.2 mg/dl Assessment and Plan A/P: Urosepsis, Urinary retention, prostate cancer 1. Urosepsis Repeat cultures preliminarily negative. Management of IV abx per ID. Appreciate the consult. 2. Urinary retention Resume CIC QID prior to discharge. 3. Prostate Cancer- - ct4 metastatic [place] 5+5 PSA improved to 38.9 from 574.00 after initiation of Casodex and Lupron. Appreciate oncology consult. Possible candidate for Docetaxel as an outpatient. Continue Casodex. Decrease to 50mg qd. New Rx sent. Lupron injections as scheduled per our office. The pt is scheduled to f/u with Dr. Lunsford on 01-01. Will keep as scheduled. Pt Ok for d/c home today from [facility]. No further management at this time. Recall PRN issues.
[2017-12-05] MEDS ORDERED: CEFD300C2 PO (11:26)
[2017-12-05 11:28] VITALS: BP 131/74; PULSE 51; TEMP 36.6; O2SAT 97
[2017-12-05] MEDS: CEFTRIAXONE SOD INJ 2,000 MG in DEXTROSE 5% 50ML 50 ML IV SCH (11:29)
--- NOTE | 2017-12-05 11:30 | Discharge Instructions ---
Discharge Instructions Date of Service Dec 05, 2017. Admission Reason for Admission: Serratia Marcescens Infection, Discharge Discharge Diagnosis / Problem: Serratia marcescens infection Discharge Goals Goal(s): Decrease discomfort, Improve disease control, Learn about illness, Diagnostic testing, Therapeutic intervention, Prevent Disease Progression Activity Recommendations Activity Limitations: resume your previous activity . Instructions / Follow-Up Instructions / Follow-Up Bacteremia (blood infection) and urinary tract infection: You will need to report to the [facility] on 12/06 and Thursday 12/07 for IV Rocephin (antibiotic) treatment On Thursday 12/07, you will need to call Dr. Alexandra- he will further instruct you on antibiotics Prostate cancer: Casodex was DECREASED to once daily Resume all other regular home medications FOLLOW-UPS: Please follow-up with your PCP within 5-[address] Alexandra's office on 12/07- # [phone] Please follow-up with Urology as scheduled on 01/01 Oncology, Dr. Garcia's office will be calling you with an appointment Please follow-up/keep all of your subspecialty appointments Current Hospital Diet Patient's current hospital diet: Regular Diet Discharge Diet Recommended Diet: Regular Diet Pending Studies Studies pending at discharge: no Medical Emergencies . Who to Call and When: Medical Emergencies: If at any time you feel your situation is an emergency, please call 911 immediately. . Non-Emergent Contact Non-Emergency issues call your: Primary Care Provider, Urologist Call Non-Emergent contact if: you have a fever, your pain is not controlled, your pain is worsening, your pain is unusual for you, your pain is concerning you, you have any medication questions . . "Provider Documentation" section prepared by Jaye Joshi. .
--- NOTE | 2017-12-05 11:37 | Discharge Summary ---
Discharge Summary Date of Service Dec 05, 2017. Discharge Summary Admission Date: Dec 03, 2017 at 18:52 Discharge Date: Dec 05, 2017 Discharge Disposition: Home Principal Diagnosis: Bacteremia, UTI Problems/Secondary Diagnoses: Serratia bacteremia w/ likely pyelonephritis and UTI POA ?prostatitis L hydronephrosis Urinary retention metastatic prostate cancer CKD stage III HTN h/o FL x2 Procedures: RENAL ULTRASOUND HISTORY: UTI with bacteremia , R/O sole renal abscess or obstruction COMPARISON: Abdomen and pelvis CT 11/30/2017. FINDINGS: Right kidney: 11.4 cm. No hydronephrosis. Multiple cysts the largest in the lower pole measuring 5.3 cm. This demonstrates a few septations. This also demonstrates a few internal echoes. The cortex is slightly echogenic. Left kidney: 12.5 cm. Moderate hydronephrosis, unchanged. Multiple cysts with the largest in the upper pole measuring 8 cm. The cortex is echogenic and demonstrates mild to moderate thinning. The Bladder: Decompressed by Hand catheter and not well visualized. Bladder wall thickening is noted. IMPRESSION: 1. No change in the moderate left hydronephrosis. 2. Bilateral renal cysts. The 5.3 cm lower pole cyst within the right kidney appears to be complex. 3. Bladder wall thickening. This may be due to the decompression by the Hand catheter. 4. Echogenic kidneys suggestive of medical renal disease. Electronically signed by: Abdi De Anda M.D. 12/03/2017 11:09 PM Dictated Date/Time: 12/03/2017 11:06 PM The status of this report is Signed. Draft = Not yet reviewed or approved by Radiologist. Signed = Reviewed and approved by Radiologist Consultations: Infectious Disease- Dr. Alexandra Medication Reconciliation Changed Medications: Bicalutamide (Casodex) 50 Mg Tab 50 MG PO QD, #30 TAB 6 Refills (Changed from: TID; Refills: ) Cefdinir (Omnicef) 300 Mg Cap 300 MG PO Q12H for 14 Days, #28 CAP (Medication details modified) Resume once discussing with Dr. Alexandra on 12/07 Continued Medications: Hydrochlorothiazide (Hctz) 25 Mg Tab 12.5 MG PO DIRECTED 1/2 TABLET ON ODD DAYS ONLY Lisinopril (Prinivil) 10 Mg Tab 10 MG PO DAILY, TAB Metoprolol Succ (Toprol Xl) (Toprol-Xl) 25 Mg Tabcr 25 MG PO DAILY, #30 TAB Referrals At Discharge Follow up Referrals: Infectious Disease - 12/07/17 with Jaxson Alexandra MD Oncology/Hematology Referral - Please Call For Appointment with Florencio Garcia MD Discharge Exam Review of Systems: Constitutional: No fever, No chills, No sweats, No weakness, No fatigue Eyes: No worsening of vision ENT: No hearing loss Respiratory: No cough, No shortness of breath, No hemoptysis Cardiovascular: No chest pain, No edema, No palpitations Abdomen: No pain, No nausea, No vomiting, No diarrhea, No constipation Musculoskeletal: No joint pain, No muscle pain, No swelling, No calf pain Genitourinary - Male: No hematuria, No dysuria Neurologic: No memory loss, No weakness, No numbness/tingling Psychiatric: No depression symptoms, No anxiety Endocrine: No fatigue Hematologic / Lymphatic: No abnormal bleeding/bruising Integumentary: No rash, No itch, No new/changing skin lesions Physical Exam: General Appearance: no apparent distress Eyes: normal inspection, PERRL ENT: TMs normal Neck: supple Respiratory/Chest: lungs clear, no respiratory distress, no accessory muscle use Cardiovascular: regular rate, rhythm, + systolic murmur Abdomen / GI: normal bowel sounds, non tender, soft Extremities: no calf tenderness, no pedal edema Neurologic/Psychiatric: alert, normal mood/affect, oriented x 3 Skin: normal color, warm/dry, no rash Hospital Course 82 y M with PMHx of HTN, 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 Lunsford at the beginning of this month. Patient was recently in the ER 3 days ago and found to have a UTI where blood cultures were drawn. At that point in time he refused to be admitted, and was started on Omnicef and discharged from the ER. Blood cultures have returned positive 2/2 with Serratia marcescens. Pt admitted and placed on IV ceftriaxone. Serratia bacteremia w/ likely pyelonephritis and UTI POA, ?prostatitis- BCx and UCx from 11/30 w/ pansensitive Serratia marcescens: - Admitted to med/surg - IV Rocephin- started on 12/03- increased to 2g on 12/05 - Floranex TID - Follow repeat UCx and BCx- obtained on 12/03- NGTD - Renal US w/ STABLE L hydronephrosis when compared to CT on 11/30 - ID consulted, appreciate recommendation- IV Rocephin 2 g at [facility] on 12/06 and - pt to call Dr. Alexandra on 12/07 for further antibiotic instructions Urinary retention, metastatic prostate cancer- follows w/ Dr. Lunsford: - Discontinued Hand prior to discharge and resume [facility] QID - Urology consulted- recheck PSA at 38, Casodex decreased from 50 mg TID to daily, continue Lupron injections, scheduled f/u on 01/01 - Oncology consulted- will be calling patient for f/u outpatient CKD stage III- STABLE: Follow PRP HTN, h/o FL x2- STABLE: Continue Metoprolol, Lisinopril, and HCTZ DVT prophylaxis: Ambulation CODE STATUS: Full code Dispo: Discharge to home Total Time Spent: Greater than 30 minutes This includes examination of the patient, discharge planning, medication reconciliation, and communication with other providers. Discharge Instructions Please refer to the electronic Patient Visit Report (Discharge Instructions) for additional information. Follow-Up Please follow-up with your PCP within 5-7 days Please follow-up with Urology as scheduled on 01/[address] Alexandra on 12/07 for further antibiotic treatment instructions Dr. Garcia's office will be calling for f/u appointment Please follow-up/keep all of your subspecialty appointments
[2017-12-05] MEDS: SODIUM CHLORIDE 0.9% 1000ML 1,000 ML IV SCH (11:51)
[2017-12-05 11:57] VITALS: BP 131/74; PULSE 51; TEMP 36.6; O2SAT 97
[2017-12-06] MEDS ORDERED: BICA50TA2 PO (13:18)
== END 2017-12-05 13:45 | disposition home or self-care (01) | DRG 699 ==
LOC: C.EDB 16:14 → C.4E 18:52 → ENRESERV 18:58 → C.4E 19:30
PROVIDERS: ADMIT Internal Medicine; ATTEND Hospitalist
DX: T83.518A Infection and inflammatory reaction due to other urinary catheter, initial encounter (principal); R78.81 Bacteremia; N12 Tubulo-interstitial nephritis, not specified as acute or chronic; N41.3 Prostatocystitis; Y84.6 Urinary catheterization as the cause of abnormal reaction of the patient, or of later complication, without mention of misadventure at the time of the procedure; B96.89 Other specified bacterial agents as the cause of diseases classified elsewhere; C61 Malignant neoplasm of prostate; N40.1 Benign prostatic hyperplasia with lower urinary tract symptoms; I12.9 Hypertensive chronic kidney disease with stage 1 through stage 4 chronic kidney disease, or unspecified chronic kidney disease; N18.3 Chronic kidney disease, stage 3 (moderate); I25.2 Old myocardial infarction; Z87.891 Personal history of nicotine dependence; Z88.1 Allergy status to other antibiotic agents; Z88.8 Allergy status to other drugs, medicaments and biological substances

== ENCOUNTER → 2017-12-25 | Outpatient (CLI) | payer OTHER ==
[~2017-12-25] MED LIST changes: -CEFD300C2 PO
--- NOTE | 2017-12-25 13:25 | DIAGNOSTIC IMAGING REPORT ---
ABD/PELVIS NO IV OR ORAL CONT CLINICAL HISTORY: 82 years-old Male presenting with N41.0 Acute bacterial [id number], history of prostate cancer. TECHNIQUE: Multidetector CT of the abdomen and pelvis was performed without the use of intravenous contrast. IV contrast: None. A dose lowering technique was used consistent with the principles of ALARA (as low as reasonably achievable). COMPARISON: 11/30/2017. CT DOSE (mGy.cm): The estimated cumulative dose is 391.46 mGycm. FINDINGS: [employer] topogram: Unremarkable. Lung bases: 4 mm solid peripheral nodule in the right lower lobe (series 3 image 2), unchanged. Minimal dependent opacities likely atelectasis. Minimal nodularity in the lingula unchanged. Normal heart size. Coronary artery calcification. No pericardial or pleural effusion. Liver: Normal morphology. Normal density. Biliary: No gross biliary ductal dilatation allowing for noncontrast technique. Gallbladder contains gallstones. Pancreas: Normal noncontrast appearance. Spleen: Normal noncontrast appearance. Adrenal glands: Normal noncontrast appearance. Kidneys and ureters: Multiple well-defined hypodensities in the kidneys the largest on the left measuring 8.6 cm, likely simple cysts. Stable to slight interval decrease in distention of the left renal collecting system and left ureter though these remain dilated. There is abrupt caliber change at the level of the left iliac bifurcation with the distal left ureter normal in caliber. No evidence of a calculus at this site. Evaluation for urothelial mass is limited in the absence of intravenous contrast. No right hydronephrosis. Right ureter normal. No nephrolithiasis. Bladder: Circumferential bladder wall thickening. Pelvic organs: Prostate enlargement likely secondary to benign prostatic hyperplasia. Bowel: Moderate stool burden in the rectum with wall thickening of the lower rectum and in a rectal junction suggested. Infiltration of the mesorectal fat and thickening of the mesorectal fascia. Moderate stool burden is also noted in the more proximal colon. Thickening of the terminal ileum at the ileocecal valve suggested (series 3 image 251). No bowel obstruction. Moderate hiatal hernia. Peritoneal cavity: Small amount of free fluid in the superior pelvis and lower abdomen. No free intraperitoneal gas. Lymph nodes: Numerous pathologically enlarged retroperitoneal lymph nodes again evident though these have significantly decreased in size. The previously measured index node in the left periaortic region now measures 3.5 x 2.5 cm (series 3 image 146), previously 4.4 x 2.9 cm. Decreased size of remaining lymphadenopathy in the bilateral iliac and inguinal regions the lymphadenopathy remains present in all of these [place] stations. Vasculature: Atherosclerosis of the normal caliber abdominal aorta. Abdominal wall: Fat-containing umbilical hernia and right inguinal hernia. Mild body wall edema. Musculoskeletal: Redemonstration of the multifocal sclerotic lesions diffusely involving the sternum, vertebral bodies, sacrum, pelvis, and proximal femurs. No gross evidence of a displaced pathologic fracture on the current exam though a nondisplaced fracture of the right sacral ala cannot be excluded (series 3 image 286). IMPRESSION: 1. A thickened wall thickening and perirectal inflammatory change most pronounced in the mid to lower rectum to the level of the anorectal junction. Infectious proctitis is difficult to exclude though this may represent post radiation change. 2. Wall thickening of the bladder circumferentially could be due to chronic bladder outlet obstruction in the setting of prostatomegaly. Correlate with urinalysis to exclude infection. 3. Stable to slight interval decrease in left hydroureteronephrosis with abrupt caliber change of the left mid ureter at the level of the iliac bifurcation. No gross evidence of a calculus at this site. This may be due to lymphadenopathy, post radiation change, or underlying mass. 4. Thickening of the terminal ileum may represent ileitis or be artifactual related to peristalsis. 5. Interval decrease in size of diffuse pathologically enlarged retroperitoneal, pelvic, and inguinal lymph nodes. These remain pathologically enlarged despite the decrease in size. 6. Redemonstration of diffuse osseous metastatic disease with suspected nondisplaced pathologic fracture of the right sacral ala. Allowing for the diffuse nature of the metastatic lesions, osseous disease is grossly stable. 7. Cholelithiasis. 8. Stable solid 4 mm right lower lobe nodule. Electronically signed by: David Justin M.D. 12/25/2017 1:23 PM Dictated Date/Time: 12/25/2017 1:10 PM
[2017-12-25 14:00] LABS: ALBUMIN 3.7 gm/dl (3.4-5.0); ALT/SGPT 17 U/L (12-78); AST/SGOT 15 U/L (15-37); BLOOD UREA NITROGEN 25 mg/dl (7-18); CALCIUM 9.2 mg/dl (8.5-10.1); CARBON DIOXIDE 27 mmol/L (21-32); CREATININE 1.65 mg/dl (0.60-1.40); GLUCOSE 93 mg/dl (70-99); POTASSIUM 4.1 mmol/L (3.5-5.1); SODIUM 139 mmol/L (136-145)
[2017-12-25 14:07] LABS: ALKALINE PHOSPHATASE 404 U/L (45-117); TOTAL PROTEIN 8.1 gm/dl (6.4-8.2)
== END | disposition home or self-care (01) ==
LOC: C.CTS 12:04
PROVIDERS: ATTEND Urology
DX: N41.0 Acute prostatitis (principal); K62.89 Other specified diseases of anus and rectum; N32.89 Other specified disorders of bladder; K56.699 Other intestinal obstruction unspecified as to partial versus complete obstruction; R59.1 Generalized enlarged lymph nodes; K80.20 Calculus of gallbladder without cholecystitis without obstruction

== ENCOUNTER → 2018-04-05 | Outpatient (CLI) | payer OTHER ==
[~2018-04-05] MED LIST changes: -BICA50TA2 PO; +BICA50TA40 PO
[2018-04-05 14:02] LABS: ALBUMIN 3.7 gm/dl (3.4-5.0); ALKALINE PHOSPHATASE 125 U/L (45-117); ALT/SGPT 20 U/L (12-78); AST/SGOT 17 U/L (15-37); BLOOD UREA NITROGEN 25 mg/dl (7-18); CALCIUM 9.6 mg/dl (8.5-10.1); CARBON DIOXIDE 26 mmol/L (21-32); CREATININE 1.76 mg/dl (0.60-1.40); GLUCOSE 94 mg/dl (70-99); POTASSIUM 4.3 mmol/L (3.5-5.1); SODIUM 140 mmol/L (136-145); TOTAL PROTEIN 8.2 gm/dl (6.4-8.2)
== END | disposition home or self-care (01) ==
LOC: C.LAB1850 11:55
PROVIDERS: ATTEND Urology
DX: R97.20 Elevated prostate specific antigen [PSA] (principal)